=== PATIENT | male | born 1960 | race Caucasian/White ===

== ENCOUNTER → 2020-03-19 15:36 | Outpatient (BNVA) | payer MEDICARE, SELFPAY | PROVIDERS: Family Provider Family Medicine; PCP Family Medicine; Referring Provider Family Medicine; Visit Provider Specialist | DX: M17.12 Unilateral primary osteoarthritis, left knee (principal); M17.11 Unilateral primary osteoarthritis, right knee | CPT/HCPCS: 73560; 73565 ==

== ENCOUNTER → 2020-12-08 10:40 | Outpatient (BNVA) | payer MEDICARE, SELFPAY | PROVIDERS: Family Provider Family Medicine; PCP Family Medicine; Visit Provider Family Medicine | DX: Z12.5 Encounter for screening for malignant neoplasm of prostate (principal); Z13.6 Encounter for screening for cardiovascular disorders; R03.0 Elevated blood-pressure reading, without diagnosis of hypertension; Z68.28 Body mass index [BMI] 28.0-28.9, adult; Z71.89 Other specified counseling; M17.0 Bilateral primary osteoarthritis of knee | CPT/HCPCS: 80053; 80061; 85025; G0103 ==

== ENCOUNTER → 2021-10-25 08:03 | Outpatient (BNVA) | payer MEDICARE, MEDICAID, SELFPAY | PROVIDERS: Family Provider Family Medicine; PCP Family Medicine; Visit Provider Specialist | DX: M17.11 Unilateral primary osteoarthritis, right knee (principal) | CPT/HCPCS: 20610; J7318 ==

== ENCOUNTER → 2021-12-21 08:22 | Outpatient (BNVA) | payer MEDICARE, MEDICAID, SELFPAY | PROVIDERS: Family Provider Family Medicine; PCP Family Medicine; Visit Provider Family Medicine | DX: I10 Essential (primary) hypertension (principal); Z86.19 Personal history of other infectious and parasitic diseases | CPT/HCPCS: 85025 ==

== ENCOUNTER 2021-12-24 08:43 | Outpatient (CLI) | payer MEDICARE, MEDICAID, SELFPAY ==
[2021-12-24 09:50] LABS: Eosinophils # 0.2 10^3/uL (0.0-0.8); Hemoglobin 15.1 g/dL (11.7-16.6); Lymphocytes # 1.6 10^3/uL (0.8-4.8); Nucleated Red Blood Cells % 0 %; Red Cell Distribution Width 12.1 % (12.1-15.1); White Blood Count 4.4 10^3/uL (4.0-10.0)
[2021-12-24 10:00] LABS: Basophils % 0.9 %; Eosinophils % 4.8 %; Hematocrit 43.9 % (42.0-52.0); Lymphocytes % 36.2 %; Mean Corpuscular HGB Conc 34.4 g/dL (30.0-36.0); Mean Platelet Volume 10.5 fL (7.4-10.4); Monocytes # 0.6 10^3/uL (0.2-0.9); Monocytes % 14.2 %; Neutrophils # 1.92 10^3/uL (1.8-7.7); Neutrophils % 43.9 %; Platelet Count 163 10^3/cmm (130-400); Red Blood Count 4.72 10^6/uL (4.1-5.3)
[2021-12-24 10:11] LABS: Creatinine Urine, Random 203 mg/dL (39-259); Microalbum Creatinine Ratio Ur 5 mg/dL (0-20); Microalbumin Random Urine 1 ug/dL (0-20)
[2021-12-24 10:13] LABS: Alanine Aminotransferase 66 U/L (0-41); Albumin Level 4.2 g/dL (3.5-5.2); Alkaline Phosphatase 68 U/L (40-130); Anion Gap 15.9 (5-19); Aspartate Amino Transferase 50 U/L (0-40); Blood Urea Nitrogen 11 mg/dL (8-23); Calcium 9.5 mg/dL (8.5-10.5); Carbon Dioxide 26 mmol/L (22-29); Chloride 101 mmol/L (98-107); Globulin 3.3 g/dL (1.3-4.6); Glomerular Filtration Rate 86.1 mL/min (90-130); Glucose 105 mg/dL (65-115); Osmolality Calculated 288 mOsm/kg (285-295); Potassium 3.9 mmol/L (3.5-5.1); Sodium 139 mmol/L (136-145); Total Bilirubin 0.9 mg/dL (0.15-1.2); Total Protein 7.5 g/dL (6.6-8.7)
[2021-12-27 00:13] LABS: HEP C RNA Viral Load Quant <1.18 NOT DETECTED Log IU/mL (NOT DETECTED); HEP C RNA Viral Load Quant <15 NOT DETECTED IU/mL (NOT DETECTED)
== END 2021-12-24 08:44 | disposition home or self-care (01) ==
PROVIDERS: PCP Family Medicine; Visit Provider Family Medicine
DX: I10 Essential (primary) hypertension (principal); Z79.899 Other long term (current) drug therapy; Z12.5 Encounter for screening for malignant neoplasm of prostate; Z86.19 Personal history of other infectious and parasitic diseases; M54.50 Low back pain, unspecified
CPT/HCPCS: 36415; 80053; 82044; 84153; 85025; 87522

== ENCOUNTER 2022-02-28 06:47 | Outpatient (CLI) | payer MEDICARE, SELFPAY ==
--- NOTE | 2022-02-28 07:00 | US_ITS ---
WS: [id number] RIGHT UPPER QUADRANT ULTRASOUND HISTORY: elevated LFT COMPARISON: CT 05/14/2018 and prior ultrasound 04/09/2018 Liver: 15.5 cm in length. Normal size liver. Very minimal nodularity along the liver surface. Coarse echotexture throughout the liver. No mass or bile duct dilatation. Portal Vein: Normal hepatopetal flow with monophasic waveform. Gallbladder: Normally distended gallbladder with no stones or wall thickening. CBD: 0.4 cm Pancreas: Poorly visualized due to body habitus and bowel gas. Right kidney: 10.7 cm in length. Normal size and echogenicity. No hydronephrosis or mass. Aorta and IVC: Unremarkable abdominal aorta and IVC. No ascites. US/US liver [id number] IMPRESSION: 1. Negative gallbladder. 2. Mild coarse echotexture throughout the liver and surface nodularity. Most c onsistent with mild cirrhotic change.
== END 2022-02-28 06:48 | disposition home or self-care (01) ==
LOC: RAD 06:49
PROVIDERS: PCP Family Medicine; Visit Provider Family Medicine
DX: R79.89 Other specified abnormal findings of blood chemistry (principal); Z86.19 Personal history of other infectious and parasitic diseases
CPT/HCPCS: 76705

== ENCOUNTER 2022-06-27 14:31 | Outpatient (CLI) | payer MEDICARE, MEDICAID, SELFPAY ==
--- NOTE | 2022-06-27 14:30 | USCV_ITS ---
Dustin Allen Age: 62 Gender: M : 1960 Exam Date: 06/27/2022 14:56 Ordering Phys: Patricia Corea Technologist: CT Exam Location: [facility] [place]_ Indication: pain,swelling PROCEDURES: Venous duplex imaging was performed in only the right lower extremity. In addition, the posterior tibial and peroneal trunk were evaluated. On the right side, the common femoral, superficial femoral, profunda femoral, popliteal, posterior tibial, greater saphenous veins and the peroneal trunk were identified and interrogated in the standard fashion. These veins were found to be easily compressible with spontaneous blood flow. No evidence of insufficiency or thrombus noted. CONCLUSIONS No evidence of right lower extremity DVT. Enlarged lymph nodes left groin measuring 2-3cm with preserved fatty hilum, non specific but likely reactive. Recommend clinical correlation Roberto Carlos Esparza MD (Electronically Signed) Final Date: 28 June 2022 14:30 S
== END 2022-06-27 14:32 | disposition home or self-care (01) ==
LOC: RAD 14:35
PROVIDERS: PCP Family Medicine; Visit Provider Registered Nurse Neonatal Intensive Care
DX: M79.89 Other specified soft tissue disorders (principal)
CPT/HCPCS: 93971

== ENCOUNTER → 2022-10-20 08:08 | Outpatient (BNVA) | payer MEDICARE, MEDICAID, SELFPAY | PROVIDERS: PCP Family Medicine; Visit Provider Specialist | DX: M17.0 Bilateral primary osteoarthritis of knee (principal) | CPT/HCPCS: 20610; J7318 ==

== ENCOUNTER → 2022-11-08 09:00 | Outpatient (BNVA) | payer MEDICARE, MEDICAID, SELFPAY | PROVIDERS: PCP Family Medicine; Visit Provider Specialist | DX: G56.03 Carpal tunnel syndrome, bilateral upper limbs | CPT/HCPCS: 73110 ==

== ENCOUNTER → 2022-11-28 08:03 | Outpatient (BNVA) | payer MEDICARE, MEDICAID, SELFPAY | PROVIDERS: PCP Family Medicine; Visit Provider Specialist | DX: G56.03 Carpal tunnel syndrome, bilateral upper limbs | CPT/HCPCS: 99214 ==

== ENCOUNTER 2023-02-01 14:43 | Emergency (ER) | payer MEDICARE, SELFPAY ==
[2023-02-01 14:50] VITALS: BP 150/88; PULSE 111; RESP 16; TEMP 37.2; O2SAT 95; BMI 25.3
--- NOTE | 2023-02-01 15:22 | USR_ITS ---
PROCEDURE INFORMATION: Exam: US Duplex Right Lower Extremity Veins, Limited Exam date and time: 02/01/2023 3:43 PM Age: 62 years old Clinical indication: Pain; Leg, lower; Left; Additional info: Swelling, pain, warmth; R/O dvt TECHNIQUE: Imaging protocol: Real-time duplex ultrasound of the right extremity with 2-D garcia scale, color Doppler flow and spectral waveform analysis including responses to compression and other maneuvers (when performed) with image documentation. Limited exam was focused on the right lower extremity veins. COMPARISON: CR XR knees AP WB w BI lmt ORTH 03/19/2020 3:42 PM FINDINGS: Right deep veins: Unremarkable. The common femoral, femoral, proximal profunda femoral and popliteal veins are patent without thrombus. Normal Doppler waveforms. Normal compressibility and/or augmentation response. Superficial veins: Unremarkable. Saphenofemoral junction is patent without thrombus. Soft tissues: Unremarkable. US/[place] [id number] IMPRESSION: No evidence of deep vein thrombosis.
--- NOTE | 2023-02-01 15:24 | ED_ITS ---
HPI - Skin/Abscess/Foreign Bdy General: Chief complaint: Skin/Abscess/Foreign Body Stated complaint: right leg issue Time Seen by Provider: 02/01/23 15:03 History of Present Illness: 62-year-old male presents emergency room complaining of starting to feel fatigue 3 days ago. Yesterday he started developing redness and warmth of his right lower extremity. He noticed it a little bit on top of his foot but mostly around the ankle and calf of his right leg. Today he had a fever of up to 103 degrees at home. He has been taking Tylenol and ibuprofen. The redness is starting to streak up the inside of his right thigh. He denies feeling dizzy. He denies immunocompromise. He has had several knee operations on the right side which may predispose him to some vascular issues. He does not have peripheral arterial disease. Denies diabetes. Denies any wounds or rashes that preceded his symptoms on Monday or Monday. However, back in September, several months ago, he had cellulitis of the right lower extremity that felt very similar. Associated symptoms: Deny nausea or vomiting Review of Systems General: Reports: 10 or more systems reviewed and unremarkable except in HPI and below Eyes: Denies: change in vision ENMT: Denies: throat pain Card: Denies: chest pain, edema or syncope Resp: Denies: dyspnea or productive cough GI: Denies: abdominal pain, nausea, vomiting or diarrhea : Denies: flank pain, dysuria or urinary frequency Musc: Denies: neck pain or back pain Skin/Breast: Denies: erythema Neuro: Denies: headache(s), numbness in extremities, weakness in extremities, lack of coordination or difficulty walking [facility] ED PFSH: Medical History Enrolled in chronic care management History of hepatitis C Primary osteoarthritis of knees, bilateral Surgical History H/O knee surgery Family History Other Cancer Social History Smoking and tobacco/nicotine status: never used tobacco/nicotine Alcohol intake: current Alcohol intake frequency: few times a week Substance/Drug Use: former Physical Exam Narrative: EXAM NARRATIVE: Right lower extremity examination is abnormal. His foot has some very mild erythema around the dorsal midfoot. However most of the erythema starts just above the right ankle. It is warm to the touch. The ankle and calf are both edematous with increased compartment pressures. There appears to be some dilated varicose veins although there is subtle. There is streaking of erythema and warmth going up the medial right thigh. It stops around the right inguinal ligament. He is neurovascularly and motor intact both lower extremities. Examination of the foot does not reveal any obvious skin defects or wounds but he does have dry cracked skin. Const: COMMON NORMALS: no limitations, alert and well nourished EXAM LIMITATIONS: no altered mental status HENMT: COMMON NORMALS: normocephalic, atraumatic and external ears normal HEAD & SCALP: normocephalic and atraumatic EXTERNAL EAR: Yes external ears normal MOUTH: no muffled voice Eye: COMMON NORMALS: EOMs intact bilaterally, conjunctivae normal and no scle ral icterus CONJUNCTIVA: Yes conjunctivae normal Neck/C-Spine: COMMON NORMALS: no JVD GENERAL: Yes normal visual inspection and Yes trachea midline Cardio: COMMON NORMALS: no JVD RATE: tachycardic Neuro: COMMON NORMALS: moves all extremities, no focal motor deficits and no sensory deficits noted SENSORIUM/ORIENTATION: Yes alert SPEECH: speech normal Psych: COMMON NORMALS: mental status grossly normal, Normal thought process present, cooperative, normal affect and speech normal SPEECH: Yes normal speech THOUGHT PROCESS: Normal thought process present Skin: COMMON NORMALS: turgor normal and no jaundice GENERAL SKIN EXAM: turgor normal Course Vital Signs: Vital signs: Vital Signs Temperature 99.0 F 02/01/23 14:50 Pulse Rate 111 H 02/01/23 14:50 Respiratory Rate 16 02/01/23 14:50 Blood Pressure 150/88 02/01/23 14:50 Pulse Oximetry 95 02/01/23 14:50 Oxygen Delivery Me thod Room Air 02/01/23 14:50 MDM - Skin/Abscess/Foreign Bdy Medicial Decision Making Patient presents with what is likely cellulitis of the right lower extremity. He does have scars on his right knee and has had surgery on it twice. I am wondering if this is predisposing him to injury due to venous damage and probably some chronic venous hypertension and pooling. Patient reports that he did just get back from [place] where he was on vacation and drink alcohol ramon quently for 10 days. Unsure if this suppressed his immune system. He does not have any DVT risk factors other than he did fly in an airplane. However, he almost never sit still including when he is sitting down. He is constantly tapping his foot or moving around. He is not having any chest pain or shortness of breath. I will obtain a right lower extremity ultrasound to rule out DVT. However, most likely diagnosis is cellulitis. Patient will get blood cultures, lactic, IV fluids given his tachycardia and reported fever. He is not hypotensive and I think it is unlikely that he is septic. I will give him 2 g of IV Rocephin for his documented infection. Dispo pending labs and response to therapy. WBC normal Lactic normal Transaminitis and low sodium--> patient say h UPDATE: 1721 US results not back. I tracked down US team. THe US was taken 2 hrs ago but they don't see a pending report. I did not get verbal handoff on results. US tech on duty now is going to track down why there is a delay. Update: US images sent to radiologist at [facility]. Pt reassessed and redness/warmth hasn't changed. He has pretty significant cellulitis. He's gotten 2g of rocephin here. I'll put him on 500mg cephalexin qid for 10 days and ask to elevate, compression stockings, image the cellulitis daily to track progress. 1750: US RLE neg for DVT. Lab Data 02/01/23 15:41 02/01/23 15:41 Radiology Impressions Venous Duplex 02/01/23 15:22 IMPRESSION: No evidence of deep vein thrombosis. Laboratory Results WBC 6.98 10^3/uL (3.29-11.43) 02/01/23 15:41 RBC 4.49 10^6/uL (3.85-5.65) 02/01/23 15:41 Hgb 14.40 g/dL (11.27-16.99) 02/01/23 15:41 Hct 41.3 % (37-53) 02/01/23 15:41 MCV 92.0 fl (82-101) 02/01/23 15:41 MCH 32.1 pg (27-33) 02/01/23 15:41 MCHC 34.9 g/dL (30-55) 02/01/23 15:41 RDW 13.1 % (12.1-15.1) 02/01/23 15:41 Plt Count 95 10^3/cmm (157-399) L 02/01/23 15:41 MPV 10.3 fL (7.4-10.4) 02/01/23 15:41 Neut % (Auto) 83.0 % 02/01/23 15:41 Lymph % (Auto) 4.6 % 02/01/23 15:41 Charlton % (Auto) 11.9 % 02/01/23 15:41 Eos % (Auto) 0.0 % 02/01/23 15:41 Baso % (Auto) 0.1 % 02/01/23 15:41 Neut # (Auto) 5.79 10^3/uL (1.8-7.7) 02/01/23 15:41 Lymph # (Auto) 0.3 10^3/uL (0.8-4.8) L 02/01/23 15:41 Charlton # (Auto) 0.8 10^3/uL (0.2-0.9) 02/01/23 15:41 Eos # (Auto) 0.0 10^3/uL (0.0-0.8) 02/01/23 15:41 Baso # (Auto) 0.0 10^3/uL (0.0-0.1) 02/01/23 15:41 Nucleated RBC % (auto) 0 % 02/01/23 15:41 Nucleated RBCs # 0.0 /100WBC 02/01/23 15:41 Sodium 128 mmol/L (136-145) L 02/01/23 15:41 Potassium 3.7 mmol/L (3.5-5.1) 02/01/23 15:41 Chloride 94 mmol/L (98-107) L 02/01/23 15:41 Carbon Dioxide 19 mmol/L (22-29) L 02/01/23 15:41 Anion Gap 18.7 (5-19) 02/01/23 15:41 BUN 8 mg/dL (8-23) 02/01/23 15:41 Creatinine 0.7 mg/dL (0.7-1.2) 02/01/23 15:41 GFR Calculation 114.6 mL/min (90-130) 02/01/23 15:41 Glucose 138 mg/dL (65-115) H 02/01/23 15:41 Calculated Osmolality 267 mOsm/kg (285-295) L 02/01/23 15:41 Lactic Acid 1.7 mmol/L (0.5-2.2) 02/01/23 15:41 Calcium 8.9 mg/dL (8.5-10.5) 02/01/23 15:41 Total Bilirubin 1.5 mg/dL (0.15-1.2) H 02/01/23 15:41 AST 87 U/L (0-40) H 02/01/23 15:41 ALT 77 U/L (0-41) H 02/01/23 15:41 Alkaline Phosphatase 91 U/L (40-130) 02/01/23 15:41 Total Protein 7.3 g/dL (6.6-8.7) 02/01/23 15:41 Albumin 4.0 g/dL (3.5-5.2) 02/01/23 15:41 Globulin 3.3 g/dL (1.3-4.6) 02/01/23 15:41 All radiology interpretation(s) finalized by discharge Discharge Plan Discharge Patient Disposition: Home Clinical Impression: Cellulitis of right lower extremity, Transaminitis Condition: Stable Prescriptions: New cephalexin 500 mg capsule 500 mg PO Q6H 10 Days Qty: 40 0RF Held naproxen 250 mg Tablet 500 mg PO DAILY PRN (Reason: Pain) Hold Instructions: Resume on 02/01/23. Do not take ibuprofen and naproxen at same time--they are in same drug class No Action ibuprofen 200 mg Tablet 400 mg PO Q6H PRN (Reason: Pain) losartan 50 mg tablet 50 mg PO DAILY celecoxib 200 mg capsule 200 mg PO DAILY Discharge Orders: Discharge ED (Routine); Ordered 02/01/23 Ordered By: Dominic Reyes Referrals: Molly Fry DO [Primary Care Provider] - 4-7 days (Elevated liver enzymes (AST/ALT), cellulitis) Discharge Diet: Advance as tolerated Discharge Activity: Increase activity as tolerated Patient Instructions: Cellulitis (ED), Pain Management Activity Restrictions/Additional Instructions: Take antibiotics as prescribed. Take probiotics for the next one month to help offset killing of good gut bacteria. Elevated your right leg above level of heart for at least 6 hours per day. Wear a mild compression stocking on the right leg. Return to ER or call your doctor if you are getting worse. Coding Level of Care Code ED Skein Bander for Miguel Angel Lopez
[2023-02-01] MEDS: cefTRIAXone 2,000 MG in sodium chloride 0.9% (plus) 50 ML 100 MG IV (15:46)
[2023-02-01 16:02] LABS: Basophils % 0.1 %; Hematocrit 41.3 % (37-53); Lymphocytes # 0.3 10^3/uL (0.8-4.8); Lymphocytes % 4.6 %; Mean Corpuscular HGB Conc 34.9 g/dL (30-55); Mean Corpuscular Hemoglobin 32.1 pg (27-33); Mean Platelet Volume 10.3 fL (7.4-10.4); Monocytes # 0.8 10^3/uL (0.2-0.9); Monocytes % 11.9 %; Neutrophils # 5.79 10^3/uL (1.8-7.7); Nucleated Red Blood Cells % 0 %; Platelet Count 95 10^3/cmm (157-399); Red Blood Count 4.49 10^6/uL (3.85-5.65); Red Cell Distribution Width 13.1 % (12.1-15.1); White Blood Count 6.98 10^3/uL (3.29-11.43)
[2023-02-01 16:11] LABS: Alanine Aminotransferase 77 U/L (0-41); Alkaline Phosphatase 91 U/L (40-130); Anion Gap 18.7 (5-19); Aspartate Amino Transferase 87 U/L (0-40); Blood Urea Nitrogen 8 mg/dL (8-23); Calcium 8.9 mg/dL (8.5-10.5); Carbon Dioxide 19 mmol/L (22-29); Chloride 94 mmol/L (98-107); Globulin 3.3 g/dL (1.3-4.6); Glomerular Filtration Rate 114.6 mL/min (90-130); Glucose 138 mg/dL (65-115); Osmolality Calculated 267 mOsm/kg (285-295); Potassium 3.7 mmol/L (3.5-5.1); Sodium 128 mmol/L (136-145); Total Bilirubin 1.5 mg/dL (0.15-1.2); Total Protein 7.3 g/dL (6.6-8.7)
[2023-02-01 16:12] LABS: Lactic Sepsis W/Reflex 1.7 mmol/L (0.5-2.2)
[2023-02-01 16:38] LABS: Slide Review Slide Review Perform
== END 2023-02-01 18:04 | disposition home or self-care (01) ==
PROVIDERS: Emergency Provider Emergency Medicine; PCP Family Medicine
DX: L03.115 Cellulitis of right lower limb (principal); M79.604 Pain in right leg; R74.01 Elevation of levels of liver transaminase levels; Z86.19 Personal history of other infectious and parasitic diseases
CPT/HCPCS: 36415; 80053; 83605; 85025; 87040; 93971; 96365; 99284; J0696; J7030

== ENCOUNTER → 2023-02-08 14:03 | Outpatient (BNVA) | payer MEDICARE, SELFPAY | PROVIDERS: PCP Family Medicine; Visit Provider Nurse Practitioner | DX: G56.03 Carpal tunnel syndrome, bilateral upper limbs (principal) | CPT/HCPCS: 99213 ==

== ENCOUNTER → 2023-02-17 12:59 | Outpatient (BNVA) | payer MEDICARE, SELFPAY | PROVIDERS: PCP Family Medicine; Visit Provider Specialist | DX: G56.03 Carpal tunnel syndrome, bilateral upper limbs (principal) | CPT/HCPCS: 95910; 95911 ==

== ENCOUNTER → 2023-02-21 12:45 | Outpatient (BNVA) | payer MEDICARE, SELFPAY | PROVIDERS: PCP Family Medicine; Visit Provider Specialist | DX: G56.03 Carpal tunnel syndrome, bilateral upper limbs (principal) | CPT/HCPCS: 95870; 99202 ==

== ENCOUNTER → 2023-02-24 08:01 | Outpatient (BNVA) | payer MEDICARE, SELFPAY | PROVIDERS: PCP Family Medicine; Visit Provider Nurse Practitioner | DX: G56.03 Carpal tunnel syndrome, bilateral upper limbs (principal) | CPT/HCPCS: 99214 ==

== ENCOUNTER 2023-02-28 09:45 | Outpatient (CLI) | payer MEDICARE, SELFPAY ==
[2023-02-28 10:26] LABS: Basophils # 0.1 10^3/uL (0.0-0.1); Basophils % 1.6 %; Eosinophils # 0.2 10^3/uL (0.0-0.8); Hematocrit 41.7 % (37-53); Lymphocytes # 1.4 10^3/uL (0.8-4.8); Lymphocytes % 31.5 %; Mean Corpuscular HGB Conc 34.8 g/dL (30-55); Mean Corpuscular Hemoglobin 32.1 pg (27-33); Mean Corpuscular Volume 92.3 fl (82-101); Mean Platelet Volume 9.5 fL (7.4-10.4); Monocytes # 0.7 10^3/uL (0.2-0.9); Monocytes % 16.6 %; Neutrophils # 1.99 10^3/uL (1.8-7.7); Neutrophils % 46.3 %; Nucleated Red Blood Cells % 0 %; Platelet Count 144 10^3/cmm (157-399); Red Blood Count 4.52 10^6/uL (3.85-5.65); Red Cell Distribution Width 13.7 % (12.1-15.1); White Blood Count 4.29 10^3/uL (3.29-11.43)
[2023-02-28 10:48] LABS: Alanine Aminotransferase 46 U/L (0-41); Alkaline Phosphatase 103 U/L (40-130); Anion Gap 15.2 (5-19); Aspartate Amino Transferase 60 U/L (0-40); Blood Urea Nitrogen 9 mg/dL (8-23); Calcium 9.6 mg/dL (8.5-10.5); Carbon Dioxide 24 mmol/L (22-29); Chloride 103 mmol/L (98-107); Globulin 3.9 g/dL (1.3-4.6); Glomerular Filtration Rate 98.3 mL/min (90-130); Glucose 119 mg/dL (65-115); Osmolality Calculated 286 mOsm/kg (285-295); Potassium 4.2 mmol/L (3.5-5.1); Sodium 138 mmol/L (136-145); Total Bilirubin 0.7 mg/dL (0.15-1.2); Total Protein 7.9 g/dL (6.6-8.7)
== END 2023-02-28 09:46 | disposition home or self-care (01) ==
PROVIDERS: PCP Family Medicine; Visit Provider Nurse Practitioner
DX: G56.01 Carpal tunnel syndrome, right upper limb (principal)
CPT/HCPCS: 36415; 80053; 85025

== ENCOUNTER 2023-03-07 08:43 | Day surgery (SDC) | payer MEDICARE, SELFPAY ==
[2023-03-07] VITALS (10 sets, daily range): BP systolic 118–155; BP diastolic 76–90; PULSE 69–80; RESP 15–21; TEMP 36.3–36.6; O2SAT 92–97; BMI 25.3
[2023-03-07] MEDS: CELEcoxib 200 mg Capsule 400 MG (06:45)
[2023-03-07] MEDS: gabapentin 300 mg Capsule (06:45)
[2023-03-07] MEDS: sodium chloride 0.9% 1,000 ML 30 ML (06:45)
[2023-03-07] MEDS: ceFAZolin 2,000 mg SDV 2000 MG IVP (07:11)
[2023-03-07] MEDS: BUPivacaine 0.5% INJ 30 mL INJECTION (07:40)
--- NOTE | 2023-03-07 08:41 | P.OP_ITS ---
Operative Report Date of procedure: March 07, 2023 Pre-op diagnosis: Right carpal tunnel syndrome Post-op diagnosis: Right carpal tunnel release Post-op findings: Significant compression across the median nerve with fibrous tissue Procedure done: Right carpal tunnel release Specimens removed/disposition: None Surgeon: Yanet Lomeli MD Mechanical Engineering Lecturer: None Anesthesia: General (Per LMA, ASA 2) Estimated blood loss (mL): 1 Tourniquet time (min): 23 (At 250 mmHg) IV fluids (mL): 700 Urine output (mL): 0 (No Bradshaw) Complications: None Disposition: PACU (Then to same-day surgery for discharge to home) Brief History: This 62-year-old gentleman presents today for right carpal tunnel release. Initially, he was seen in the office for bilateral wrist pain and had findings consistent with bilateral carpal tunnel syndrome. He also had nerve conduction study and EMG demonstrating bilateral carpal tunnel. He has numbness and tingling in his hands and fingers which was equal bilaterally, but he felt that the worst one was the right. He also has wrist braces that he wears at night. Procedure: The patient was brought to the operating theater. The patient had general anesthesia per LMA, ASA 2. The tourniquet was elevated to 250 mmHg for a total tourniquet time of 23 minutes. The patient was also given Ancef 2 g preoperatively. The arm was then prepped and draped with DuraPrep in usual fashion with the arm draped free. A surgical pause was performed. At the time, the surgical pause, we confirmed the site and side of surgery. We also confirmed the patient's identity, appropriate and timely administration of preoperative antibiotics and preoperative surgical markings. An incision was then made along the thenar crease. The incision crossed the wrist joint in a curvilinear fashion. Dissection continued through skin and soft tissues using a scalpel. The palmaris longus was identified along with the transverse carpal ligament. Each of these was released carefully to avoid injury to the median nerve. We were able to dissect gently into the carpal canal which was noted to be quite tight with significant compression across the median nerve. The nerve was visualized and was an hourglass shape. The canal was subsequently palpated to assure there was no bony encroachment upon the canal. There was a quite thickened fibrous tissue within the canal, and this was opened longitudinally as well. The canal was then palpated distally and proximally to assure that my small finger was passed easily without impingement. Finding this to be so, attention was directed to closure. The wound was irrigated with ropivacaine plain. It was then closed with 3-0 nylon in an interrupted mattress fashion. Sterile dressing was then placed consisting of Dermabond, OpSite, fluffed fluffs, sterile soft roll, and an Trey wrap. The tourniquet was released after 23 minutes. There were no complications. There were no specimens. The procedure was well tolerated. Plan is the patient will be discharged home. Related Problem List Diagnoses (1) Carpal tunnel syndrome of right wrist:
--- NOTE | 2023-03-07 09:20 | ANE.PACU2 ---
Inpatient post-anesthesia follow up: Airway intact: Yes Vital signs: Temperature 97.5 F Pulse Rate 70 Respiratory Rate 18 Blood Pressure 148/83 Pulse Oximetry 95 Oxygen Delivery Me thod Room Air Oxygen Flow Rate Fraction of Inspir ed Oxygen Hydration adequate: Yes Nausea and vomiting: No Pain level: 1 Mental status: Baseline
== END 2023-03-07 09:26 | disposition home or self-care (01) ==
LOC: OR 08:44
PROVIDERS: PCP Family Medicine; Visit Provider Specialist
PROC: (CPT 64721; principal; 2023-03-07 07:00)
DX: G56.01 Carpal tunnel syndrome, right upper limb (principal)
CPT/HCPCS: 64721; J0690; J1100; J2405; J2704; J3010; J3490; J7030

== ENCOUNTER → 2023-03-23 07:41 | Outpatient (BNVA) | payer MEDICARE, SELFPAY | PROVIDERS: PCP Family Medicine; Visit Provider Nurse Practitioner | DX: G56.02 Carpal tunnel syndrome, left upper limb (principal); Z98.890 Other specified postprocedural states | CPT/HCPCS: 99214 ==

== ENCOUNTER 2023-04-18 08:42 | Day surgery (SDC) | payer MEDICARE, SELFPAY ==
[2023-04-18] VITALS (10 sets, daily range): BP systolic 124–155; BP diastolic 74–96; PULSE 75–88; RESP 12–20; TEMP 36.1–36.7; O2SAT 92–98; BMI 25.3
--- NOTE | 2023-04-18 09:17 | P.ANESASSM_ITS ---
Pre-Anesthetic Assessment Height/Weight: Height 1.7 m Weight 73.482 kg Temp Pulse Resp BP Pulse Ox O2 Del Method 97.5 F L 75 17 144/85 95 Room Air 04/18/23 08:59 04/18/23 08:59 04/18/23 08:59 04/18/23 08:59 04/18/23 08:59 04/18/23 08:59 Operation Date: 04/18/23 10:25 Proposed Procedures p Carpal Tunnel Release(Left) - Yanet Lomeli MD Was Beta Argenis taken within 24 hours: N/A Was Clonidine taken within 24 hours: N/A Last intake: Intake Last Liquid Date 04/17/23 Last Liquid Time 22:00 Last Solid Date 04/17/23 Last Solid Time 22:00 Social No tobacco Exam alert and oriented x 3 Airway Submandibular: within normal limits Cervical ROM: within normal limits Mallampati: Class I Comments: Comments: No upper teeth History/ROS No significant history except as noted and No significant complaints Musc/skel Osteoarthritis/DJD Anesthetic Plan ASA status: 2 Anesthesia: General Risk of > 500 ml blood loss (7ml/kg in children): No Medications/Allergies Home Medications Medication Instructions Recorded Confirmed Last Taken Type celecoxib 200 mg capsule 200 mg PO DAILY 02/01/23 04/17/23 04/17/23 History naproxen 250 mg tablet 500 mg PO DAILY PRN Pain 02/01/23 04/17/23 04/17/23 History Bilateral Cock-Up Splints #1 ea 02/08/23 04/18/23 Unknown Rx cock up wrist splint, left #1 ea 03/14/23 04/18/23 Unknown Rx cock up wrist splint, right #1 ea 03/14/23 04/18/23 Unknown Rx Allergies Allergy/AdvReac Type Severity Reaction Status Date / Time No Known Allergies Allergy Verified 03/23/23 08:06 [facility] Anesthesia Medical History Carpal tunnel syndrome of left wrist Carpal tunnel syndrome of right wrist Primary osteoarthritis of knees, bilateral History of hepatitis C Enrolled in chronic care management Surgical History (Updated 03/23/23 @ 08:59 by LYNDON Gtz) History of carpal tunnel release Right wrist carpal tunnel release. Dr. Yanet Lomeli MD DOS: 03/07/2023 H/O knee surgery Family History Other Cancer Social History Smoking and tobacco/nicotine status: never used tobacco/nicotine Alcohol intake: current Alcohol intake frequency: few times a week Substance/Drug Use: former Data Anesthesia Cardiac Studies: No Data to Display
[2023-04-18] MEDS: acetaminophen 1,000 MG/100 ML PIGGYBACK 400 MG IV (09:23)
[2023-04-18] MEDS: CELEcoxib 200 mg Capsule 400 MG PO (09:24)
[2023-04-18] MEDS: gabapentin 300 mg Capsule PO (09:25)
[2023-04-18] MEDS: sodium chloride 0.9% 1,000 ML 30 ML IV (09:29)
[2023-04-18] MEDS: ceFAZolin 2,000 MG in sodium chloride 0.9% (plus) 50 ML 100 MG IV (11:42)
--- NOTE | 2023-04-18 11:42 | W.PM.OPSUD ---
Surgery/Procedure H&P Update DATE OF PROCEDURE: April 18, 2023 DATE H&P PERFORMED: 03/23/23 H&P UPDATE INFORMATION: I have reviewed H&P completed within last 30 days, I have examined patient prior to procedure, No changes to prior documentation and H&P is in [facility] EMR on date indicated PLANNED PROCEDURE: Operation Date: 04/18/23 10:25 Proposed Procedures p Carpal Tunnel Release(Left) - Yanet Lomeli MD Related Problem List Diagnoses (1) Carpal tunnel syndrome of left wrist:
[2023-04-18] MEDS: BUPivacaine 0.5% INJ 30 mL INJECTION (12:35)
--- NOTE | 2023-04-18 12:53 | PM.OP ---
Operative Report Date of procedure: April 18, 2023 Pre-op diagnosis: Left carpal tunnel syndrome Post-op diagnosis: Left carpal tunnel syndrome Post-op findings: Severe compression across the carpal canal. Significant purplish discoloration and hourglass deformity to the median nerve. Bleeding at the time of surgery likely secondary to continued anti-inflammatory use. Procedure done: Left carpal tunnel release. Specimens removed/disposition: None Surgeon: Yanet Lomeli MD Senior Analysis Specialist: None Anesthesia: General (Per LMA, ASA 2) Estimated blood loss (mL): 20 Tourniquet time (min): 25 (At 250 mmHg) Tourniquet was elevated for 5 minutes initially, but there was a tourniquet malfunction and it was released secondary to not remaining elevated. IV fluids (mL): 1,100 Urine output (mL): 0 (No Bradshaw) Complications: None Findings: Consistent with carpal tunnel syndrome Brief History: This 63-year-old gentleman presents today for left carpal tunnel release. Initially, he was seen in the office for bilateral wrist pain and had findings consistent with bilateral carpal tunnel syndrome. He underwent right carpal tunnel release in February 2023, and he has recovered nicely from this. He also had nerve conduction study and EMG demonstrating bilateral carpal tunnel. He presented with numbness and tingling in his hands and fingers which was equal bilaterally, but the right was addressed first as he felt that was slightly worse. He also has wrist braces that he wears at night. As noted, the patient has recovered nicely from his right carpal tunnel release and presents today for left carpal tunnel release. Procedure: The patient was brought to the operating theater. The patient had general anesthesia per LMA, ASA 2. The tourniquet was elevated to 250 mmHg for a total tourniquet time of 25 minutes with an initial elevation and release of approximately 5 minutes due to tourniquet not remaining elevated. The patient was also given Ancef 2 g preoperatively. The arm was then prepped and draped with DuraPrep in usual fashion with the arm draped free. A surgical pause was performed. At the time, the surgical pause, we confirmed the site and side of surgery. We also confirmed the patient's identity, appropriate and timely administration of preoperative antibiotics and preoperative surgical markings. An incision was then made along the thenar crease. The incision crossed the wrist joint in a curvilinear fashion. Dissection continued through skin and soft tissues using a scalpel. The palmaris longus was identified along with the transverse carpal ligament. There was noted to be bleeding at the operative site from the subcutaneous tissues. This was felt to likely be from naproxen use along with Celebrex. The palmaris longus and transverse carpal ligament were released carefully to avoid injury to the median nerve. We were able to dissect gently into the carpal canal which was noted to be quite tight with significant compression across the median nerve. The nerve was visualized and was an hourglass shape. The canal was subsequently palpated to assure there was no bony encroachment upon the canal. There was a quite thickened fibrous tissue within the canal, and this was opened longitudinally as well. The canal was then palpated distally and proximally to assure that my small finger was passed easily without impingement. Finding this to be so, attention was directed to closure. The wound was irrigated with ropivacaine plain. It was then closed with 3-0 nylon in an interrupted mattress fashion. Sterile dressing was then placed consisting of Dermabond, OpSite, fluffed fluffs, sterile soft roll, and an Trey wrap. The tourniquet was released after 22 minutes. There were no complications. There were no specimens. The procedure was well tolerated. Plan is the patient will be discharged home. Related Problem List Diagnoses (1) Carpal tunnel syndrome of left wrist:
--- NOTE | 2023-04-18 16:54 | ANE.PACU2 ---
Inpatient post-anesthesia follow up: Airway intact: Yes Vital signs: Temperature 98 F Pulse Rate 88 Respiratory Rate 17 Blood Pressure 154/90 Pulse Oximetry 97 Oxygen Delivery Me thod Room Air Oxygen Flow Rate 6 Fraction of Inspir ed Oxygen Hydration adequate: Yes Nausea and vomiting: No Pain level: 2 Mental status: Baseline
== END 2023-04-18 14:05 | disposition home or self-care (01) ==
PROVIDERS: PCP Family Medicine; Visit Provider Specialist
PROC: (CPT 64721; principal; 2023-04-18 10:25)
DX: G56.02 Carpal tunnel syndrome, left upper limb (principal); M19.90 Unspecified osteoarthritis, unspecified site; Z86.19 Personal history of other infectious and parasitic diseases
CPT/HCPCS: 64721; J0131; J0690; J1100; J2405; J2704; J3010; J3490; J7030

== ENCOUNTER → 2023-05-03 09:38 | Outpatient (BNVA) | payer MEDICARE, SELFPAY | PROVIDERS: PCP Family Medicine; Visit Provider Specialist | DX: G56.02 Carpal tunnel syndrome, left upper limb (principal) | CPT/HCPCS: 99024 ==

== ENCOUNTER → 2023-05-22 09:04 | Outpatient (BNVA) | payer MEDICARE, SELFPAY | PROVIDERS: PCP Family Medicine; Visit Provider Family Medicine | DX: Z13.6 Encounter for screening for cardiovascular disorders (principal); Z12.5 Encounter for screening for malignant neoplasm of prostate | CPT/HCPCS: 80061; G0103 ==

== ENCOUNTER → 2023-05-29 08:03 | Outpatient (BNVA) | payer MEDICARE, SELFPAY | PROVIDERS: PCP Family Medicine; Referring Provider Family Medicine; Visit Provider Nurse Practitioner | DX: M17.0 Bilateral primary osteoarthritis of knee | CPT/HCPCS: 73560; 73565; 99214 ==

== ENCOUNTER 2023-05-30 08:50 | Outpatient (CLI) | payer MEDICARE, SELFPAY ==
[2023-05-30 09:25] LABS: Basophils # 0.1 10^3/uL (0.0-0.1); Basophils % 1.7 %; Eosinophils # 0.2 10^3/uL (0.0-0.8); Eosinophils % 6.1 %; Hematocrit 44.8 % (37-53); Lymphocytes # 1.3 10^3/uL (0.8-4.8); Lymphocytes % 35.9 %; Mean Corpuscular Hemoglobin 31.6 pg (27-33); Mean Corpuscular Volume 90.1 fl (82-101); Mean Platelet Volume 9.6 fL (7.4-10.4); Monocytes # 0.6 10^3/uL (0.2-0.9); Neutrophils # 1.46 10^3/uL (1.8-7.7); Neutrophils % 40.3 %; Nucleated Red Blood Cells % 0 %; Platelet Count 113 10^3/cmm (157-399); Red Blood Count 4.97 10^6/uL (3.85-5.65); Red Cell Distribution Width 12.7 % (12.1-15.1); White Blood Count 3.62 10^3/uL (3.29-11.43)
[2023-05-30 09:41] LABS: Alanine Aminotransferase 46 U/L (0-41); Albumin Level 4.1 g/dL (3.5-5.2); Alkaline Phosphatase 87 U/L (40-130); Anion Gap 14.3 (5-19); Aspartate Amino Transferase 59 U/L (0-40); Blood Urea Nitrogen 9 mg/dL (8-23); Calcium 9.1 mg/dL (8.5-10.5); Carbon Dioxide 25 mmol/L (22-29); Chloride 104 mmol/L (98-107); Globulin 3.1 g/dL (1.3-4.6); Glomerular Filtration Rate 85.5 mL/min (90-130); Glucose 93 mg/dL (65-115); Osmolality Calculated 286 mOsm/kg (285-295); Potassium 4.3 mmol/L (3.5-5.1); Sodium 139 mmol/L (136-145); Total Protein 7.2 g/dL (6.6-8.7)
[2023-05-30 11:21] LABS: Urine Appearance SL Hazy (CLEAR); Urine Color Yellow (Yellow); pH Urine 7 (5-7)
[2023-05-30 11:22] LABS: Add Urine Microscopic? YES; Bilirubin Urine Neg (Negative); Blood Urine Neg (Negative); Glucose Urine UA Norm (Normal); Ketones Urine Negative (Negative); Leukocyte Esterase Urine Negative (Negative); Nitrate Urine Negative (Negative); Protein Urine Neg (Negative); Urobilinogen Urine 4 mg/dL (Negative)
[2023-05-30 11:24] LABS: Amorphous Sediment Urine 1+ /hpf; Bacteria Urine TRACE /hpf; Mucus Urine TRACE /hpf; RBC Urine RARE /hpf (0-2); Squamous Epithelial Cell Urine RARE /hpf (0-5); WBC Urine 0-4 /hpf (0-5)
[2023-05-30 11:25] LABS: Add Urine Culture? No
== END 2023-05-30 08:51 | disposition home or self-care (01) ==
LOC: LAB 08:50
PROVIDERS: PCP Family Medicine; Visit Provider Specialist
DX: M17.12 Unilateral primary osteoarthritis, left knee (principal)
CPT/HCPCS: 36415; 80053; 81001; 85025

== ENCOUNTER 2023-05-30 11:00 | Outpatient (CLI) | payer MEDICARE, SELFPAY ==
--- NOTE | 2023-05-30 11:30 | CT_ITS ---
WS: [id number] CT LEFT KNEE, NONCONTRAST TECHNIQUE: Noncontrast CT of the LEFT knee to include the LEFT hip and ankle. [facility] CLINICAL INFORMATION: Surgery on 06/08/23 COMPARISON: None. DLP: [address] scans [address] [facility] use at least one of these dose optimization techniques: automated e xposure control; mA and/or kV adjustment per patient size (includes targeted exams where dose is matc hed to clinical indication); or iterative reconstruction. FINDINGS: Advanced tricompartment arthritis LEFT knee. Hypertrophic patella. Extensive subchondral cystic maxwell e worse involving the medial joint compartment and medial femoral condyle. [id number] articulation medial joint compartment. Hypertrophic change along the joint line. Prior screw fixation presumably d ue to ACL repair. Small suprapatellar effusion. Moderate degenerative narrowing both hips. Subchondral cystic change LE FT greater than RIGHT femoral head neck junction. Sigmoid diverticulosis. IMPRESSION: Images obtained for preoperative purposes.
== END 2023-05-30 11:01 | disposition home or self-care (01) ==
LOC: RAD 11:01
PROVIDERS: PCP Family Medicine; Visit Provider Nurse Practitioner
DX: M17.12 Unilateral primary osteoarthritis, left knee (principal)
CPT/HCPCS: 36415; 73700; 78815; 80053; 81001; 85025; A9552

== ENCOUNTER → 2023-06-06 14:35 | Outpatient (BNVA) | payer MEDICARE, SELFPAY | PROVIDERS: PCP Family Medicine; Visit Provider Family Medicine | DX: Z01.818 Encounter for other preprocedural examination (principal) | CPT/HCPCS: 81003 ==

== ENCOUNTER 2023-06-08 12:54 | Observation (INO) | payer MEDICARE, SELFPAY ==
[2023-06-08] VITALS (19 sets, daily range): BP systolic 93–137; BP diastolic 53–97; PULSE 78–98; RESP 10–18; TEMP 36.3–37.1; O2SAT 85–99; BMI 26.3
[2023-06-08] MEDS: acetaminophen 1,000 MG/100 ML PIGGYBACK 400 MG IV ×3 (06:57→21:25)
[2023-06-08] MEDS: sodium chloride 0.9% 1,000 ML 30 ML IV (06:58)
[2023-06-08] MEDS: CELEcoxib 200 mg Capsule 400 MG PO (06:59)
[2023-06-08] MEDS: gabapentin 300 mg Capsule PO (06:59)
--- NOTE | 2023-06-08 07:26 | W.PM.OPSUD ---
Surgery/Procedure H&P Update DATE OF PROCEDURE: June 08, 2023 DATE H&P PERFORMED: 05/29/23 H&P UPDATE INFORMATION: I have reviewed H&P completed within last 30 days, I have examined patient prior to procedure, No changes to prior documentation and H&P is in [facility] EMR on date indicated PLANNED PROCEDURE: Operation Date: 06/08/23 08:00 Proposed Procedures p Willy Robot Total Knee Arthroplasty(Left) - Yanet Lomeli MD Related Problem List Diagnoses (1) Osteoarthritis of left knee: Qualifiers: Osteoarthritis type: primary Qualified Code(s): M17.12 - Unilateral primary osteoarthritis, left knee
--- NOTE | 2023-06-08 07:33 | ANES.PREANE2 ---
Pre-Anesthetic Assessment Height/Weight: Height 1.7 m Weight 76.204 kg Temp Pulse Resp BP Pulse Ox O2 Del Method 98 F 88 18 101/65 96 Room Air 06/08/23 06:39 06/08/23 06:39 06/08/23 06:39 06/08/23 06:39 06/08/23 06:39 06/08/23 06:47 Operation Date: 06/08/23 08:00 Proposed Procedures p Willy Robot Total Knee Arthroplasty(Left) - Yanet Lomeli MD Familial anesthetic complications: none Was Beta Argenis taken within 24 hours: N/A Was Clonidine taken within 24 hours: N/A Last intake: Intake Last Liquid Date 06/08/23 Last Liquid Time 22:00 Last Solid Date 06/07/23 Last Solid Time 22:00 Social No alcohol and No tobacco Exam alert, oriented x 3, clear to auscultation bilaterally and regular rate & rhythm Airway Submandibular: within normal limits Cervical ROM: within normal limits Mallampati: Class II Dentition: full Hepatic Hepatitis (C) Musc/skel Lower Back Pain and Osteoarthritis/DJD Anesthetic Plan ASA status: 2 Anesthesia: Regional (specify below) (SAB with adductor blk) Medications/Allergies Home Medications Medication Instructions Recorded Confirmed Last Taken Type celecoxib 200 mg capsule 200 mg PO DAILY 06/07/23 06/08/23 06/06/23 History Allergies Allergy/AdvReac Type Severity Reaction Status Date / Time No Known Allergies Allergy Verified 06/07/23 09:27 Current Medications Generic Name Dose Route Start Last Admin Trade Name Freq PRN Reason Stop Dose Admin Sodium Chloride 1,000 mls @ 30 mls/hr 06/08/23 06:30 06/08/23 06:58 Sodium Chloride 0.9% IV 06/09/23 06:29 30 mls/hr .Q24H GOLDY Administration PFSH Anesthesia Medical History Carpal tunnel syndrome of left wrist Carpal tunnel syndrome of right wrist Primary osteoarthritis of knees, bilateral History of hepatitis C Enrolled in chronic care management Surgical History History of carpal tunnel release Right wrist carpal tunnel release. Dr. Yanet Lomeli MD DOS: 03/07/2023 H/O knee surgery Family History Other Cancer Social History Smoking and tobacco/nicotine status: never used tobacco/nicotine Alcohol intake: current Alcohol intake frequency: few times a week Substance/Drug Use: former Data Anesthesia Cardiac Studies: No Data to Display
[2023-06-08] MEDS: ceFAZolin 2,000 MG in sodium chloride 0.9% (plus) 50 ML 100 MG IV ×2 (08:33→18:14)
[2023-06-08] MEDS: tranexamic acid 1,000 mg/10mL SDV 1000 MG IV (09:24)
--- NOTE | 2023-06-08 09:31 | ANES.PROC ---
Anesthesia Procedures Procedure/Date: 06/08/23 Nerve Block ^: Nerve Block 1: Main Anesthesia: general anesthesia Time Out Performed: Yes Consent: requested by attending/covering physician, from patient, risks and benefits reviewed and patient agrees to proceed Nerve block location: adductor canal (left) Anesthesia monitors applied: pulse oximetry, EKG, BP cuff and oxygen Nerve block position: supine Anesthetic Used: ropivicaine 0.5% Amount of anesthesia used (mL): 20 Ultrasound used to: recognize landmarks Nerve Stimulator Used?: No Interscalene/Femoral BLK: 4 stimuplex 21 g needle used for position and inplane approach Injection: neg aspiration of heme Patient Tolerated Procedure: well Complications: none
[2023-06-08] MEDS: BUPivacaine liposome 13.3 mg/mL SDV 10 mL 266 MG INFILTRATI (09:54)
[2023-06-08] MEDS: BUPivacaine 0.5% INJ 30 mL 20 ML INJECTION (09:54)
[2023-06-08] MEDS: ceFAZolin 1,000 mg SDV 2000 MG IRRIGATION (09:55)
[2023-06-08] MEDS: vancomycin 1,000 MG SDV 1000 MG (09:56)
--- NOTE | 2023-06-08 13:29 | XR_ITS ---
WS: [id number] Exam: XR knee LT 1-2V [id number] Date/Time of Exam: 06/08/2023 1:29 PM Reason For Exam: s/p left tka Comparison 05/29/2023. A total knee prosthesis has been placed and is in satisfactory position. Postoperative changes in the adjacent soft tissues. A single screw is noted in the distal femur secondary to previous ACL repair. IMPRESSION: 1. Total knee arthroplasty in satisfactory position.
--- NOTE | 2023-06-08 13:57 | PM.OP ---
Operative Report Date of procedure: June 08, 2023 Pre-op diagnosis: Degenerative osteoarthritis left knee with 20 degree flexion contracture and 28 degree varus deformity with retained anterior cruciate ligament reconstruction hardware Post-op diagnosis: Degenerative osteoarthritis left knee with 20 degree flexion contracture and 28 degree varus deformity with retained anterior cruciate ligament reconstruction hardware Post-op findings: Retained hardware with prominence of tibial hardware anterior cortex. Large osteophytes with significant laxity laterally secondary to severe varus deformity. Procedure done: Left total knee arthroplasty with Willy guidance and removal of ACL screw from tibia Implants: The [employer] total knee system with a size 5 triathlon beaded cruciate retaining femur left, a triathlon titanium tibial component size 4 beaded, a triathlon X3 tibial bearing CS insert size 4 X 11 mm and a beaded triathlon titanium asymmetric patella size 35 x 10 mm Specimens removed/disposition: Bone, disposed of Pathology: None Surgeon: Yanet Lomeli MD Crowd Controller: Nidhi Rodríguez, nurse practitioner, who services were essential for positioning, retraction, closure, and completion of the surgical procedure Anesthesia: General (Per LMA, ASA 2 following failed attempt at spinal anesthesia) Estimated blood loss (mL): 750 Tourniquet time (min): 0 (Not utilized) IV fluids (mL): 2,050 IV fluids: 1800 crystalloid +250 albumin Urine output (mL): 400 Complications: None Findings: Severe varus deformity and flexion contracture with retained hardware Condition: stable Disposition: PACU (Then admit to floor under observation status for postoperative rehabilitation and pain management) Brief History: This is a 63-year-old gentleman who presents today for same-day surgery for left total knee arthroplasty. When seen in the clinic, he complains of pain at 5 of 10. He had had injections which only worked for a few months, and he had a directed home physical therapy program which also did not help his symptoms. He takes Celebrex daily with limited relief. He is actually interested in having both knees replaced, and noted that they were both essentially equal in symptoms. He has significant limitations in his activities of daily living. Risks and complications were discussed with the patient, and consents were signed. Procedure: The patient was brought to the operating theater, and after undergoing attempted spinal anesthetic converted to general anesthesia per LMA, with supplemental adductor canal block, ASA 2, the left lower extremity was prepped with Dura-Prep and draped in usual fashion following placement of a tourniquet high on the leg. The leg was then draped free.? Tourniquet was not elevated during the case.? A surgical pause was performed, and at the time of the surgical pause, we confirmed the site and side of surgery. Additionally, we confirmed the appropriate and timely administration of preoperative antibiotics, Ancef 2 g.? The availability of equipment was confirmed, and the patient's identity was verbalized as well. Following the surgical pause, an incision was made centering over the patella continuing proximally and distally as necessary to allow access to the knee joint. Dissection continued through skin and soft tissues using a scalpel. Hemostasis was obtained using electrocautery. The skin incision was followed by a median parapatellar arthrotomy. The leg was extended and the patella was able to be displaced laterally.? Appropriate arrays and markers were placed in appropriate position for use of the Willy.? Prior to mapping of the extremity, the patient's anterior cruciate ligament retained tibial screw was removed uneventfully. Preoperative planning had been accomplished and was discussed in detail with the Willy industrial relations representative.? Intraoperative mapping of the femur and tibia was accomplished after the arrays and checkpoints were placed. Once we had accomplished the Willy mapping, we began the appropriate resections for placement of the prosthesis.? The plan was for a cruciate retaining left total knee arthroplasty. Balancing the knee was very difficult secondary to the 20 degree flexion contracture and 28 degree varus deformity. The knee was very lax laterally. There was also some cystic change and wearing of the inner medial tibial plateau. Adjustments were made as appropriate. Once appropriate mapping had been accomplished retraction was established using manual retraction by surgical technicians and also the Willy leg positioner and retractors.? The knee was evaluated.? Appropriate bone resection was accomplished using the Willy.? The femur was sized to a size 5.? Following femoral cuts, attention was directed to the tibia.? Osteophytes were removed prior to this portion of the procedure.? We had performed a large medial release at the beginning of the procedure to allow for placement of the array and to assist in balancing the knee.? Proximal tibia was evaluated, and it was felt that appropriate size for the tibia was a size 4.? Tray was noted to fit nicely with good coverage, and we were able to avoid the deficient area on the medial tibial plateau.? Rim fit was accomplished with the size 4. A trial reduction was accomplished after osteophytes have been removed as well as the medial and lateral menisci.? We had removed the anterior cruciate ligament at the beginning of the case and preserved the posterior cruciate ligament.? Trial reduction was accomplished with a size 5 femoral cruciate retaining component, a size 4 tibial tray and a size 4 CS tibial bearing insert which was 9 mm initially which was increased to 11 mm.? Secondary to the balancing of the knee, we elected to place an 11 mm insert for the actual component. Alignment was felt to be appropriate as well.? Trial components were removed after the femur had been drilled.? Prior to removal of the tibial tray which had been pinned in position with appropriate rotation as determined by the Willy plan, we broached the tibia.? Subsequently, the 4 drill holes were made for the prosthetic component.? All trial components were removed, and the wound was irrigated.? Plans were made for insertion of the prosthetic components.? Prior to this, the patella was manually prepared.? After resection of the articular surface of the patella with the c1covry system, it was measured and measured a 35 mm patella.? We resected approximately 11 mm of patella.? Patellar height was restored with the patellar component. Evaluation of the femur demonstrated there was a cyst in the medial femoral condyle which was quite large. Additionally, following removal of the tibial screw which was residual from anterior cruciate ligament reconstruction, there was a path from the proximal tibia to the anterior tibia. Both of these areas, the cyst in the femur as well as the tibial tunnel were cleaned of all debris. We then placed Eli DBM plus putty with cancellous bone chips as bone graft into the area. Once again, the wound was irrigated.? The Tritanium tibia was impacted into position.? The beaded femur was then impacted into position in a cementless fashion. The CS tibial insert was placed prior to placement of the femoral component. The patella was pressed into position with a patellar clamp.? Exparel was injected about the components deep and superficially.? The knee was then copiously irrigated with betadine and saline and suctioned dry. Attention was then directed to closure. Closure was accomplished with 0 Vicryl in the fascial tissues.? The suture line of 0 Vicryl was supplemented with strata fix, #1, with a running stitch from proximal to distal and a second running stitch from distal to proximal.? This was followed by Surgiflo and vancomycin powder.? Following this, a 2-0 Monocryl was used in the subcutaneous tissues, and the skin was closed with 3-0 Strata fix.? Care was taken to assure an excellent subcutaneous as well as skin closure.? A sterile dressing was then placed consisting of Dermabond Prineo, OpSite, ABD, sterile soft roll, and an Trey wrap including over the foot. The patient was returned the Recovery Room in a satisfactory condition. X-rays were obtained and reviewed there.? The patient will be discharged to the floor for postoperative rehabilitation and pain management. Related Problem List Diagnoses (1) Osteoarthritis of left knee: (2) Retained orthopedic hardware: (3) Varus deformity, not elsewhere classified, left knee: (4) Flexion contracture of left knee:
--- NOTE | 2023-06-08 14:16 | ANE.PACU2 ---
Inpatient post-anesthesia follow up: Airway intact: Yes Vital signs: Temperature 98.8 F Pulse Rate 84 Respiratory Rate 18 Blood Pressure 119/80 Pulse Oximetry 98 Oxygen Delivery Me thod Nasal Cannula Oxygen Flow Rate 2 Fraction of Inspir ed Oxygen Hydration adequate: Yes Nausea and vomiting: No Pain level: 2 Mental status: Baseline
[2023-06-08] MEDS: CELEcoxib 200 mg Capsule PO (16:00)
[2023-06-08] MEDS: oxyCODONE 5 mg IR Tab/Cap PO ×2 (16:00→21:52)
[2023-06-08] MEDS: sennosides-docusate Tablet 2 TAB PO (18:14)
[2023-06-08] MEDS: iron polysaccharide complex 150 mg Capsule PO (18:15)
[2023-06-08] MEDS: tranexamic acid 1,000 MG/100 ML PREMIX 600 MG IV (18:16)
[2023-06-08] MEDS: chlorhexidine gluconate 0.12% Btl 473 mL 30 ML MUCOUS MEM (21:24)
[2023-06-09] VITALS (8 sets, daily range): BP systolic 117–145; BP diastolic 70–81; PULSE 78–92; RESP 16–18; TEMP 36.8–37.1; O2SAT 92–97
[2023-06-09] MEDS: ceFAZolin 2,000 MG in sodium chloride 0.9% (plus) 50 ML 100 MG IV ×2 (00:22→08:32)
[2023-06-09] MEDS: ondansetron 2 mg/ML SDV 2 mL 4 MG IVP (01:11)
[2023-06-09 03:32] LABS: Basophils % 0.1 %; Lymphocytes # 0.9 10^3/uL (0.8-4.8); Lymphocytes % 5.8 %; Mean Corpuscular HGB Conc 34.2 g/dL (30-55); Mean Corpuscular Hemoglobin 31.4 pg (27-33); Mean Corpuscular Volume 91.8 fl (82-101); Mean Platelet Volume 9.8 fL (7.4-10.4); Monocytes # 1.7 10^3/uL (0.2-0.9); Monocytes % 11.5 %; Neutrophils # 12.38 10^3/uL (1.8-7.7); Neutrophils % 82.2 %; Nucleated Red Blood Cells % 0 %; Platelet Count 145 10^3/cmm (157-399); Red Blood Count 3.92 10^6/uL (3.85-5.65); Red Cell Distribution Width 12.6 % (12.1-15.1); White Blood Count 15.07 10^3/uL (3.29-11.43)
[2023-06-09 03:52] LABS: Anion Gap 15.2 (5-19); Blood Urea Nitrogen 12 mg/dL (8-23); Calcium 8.5 mg/dL (8.5-10.5); Carbon Dioxide 23 mmol/L (22-29); Chloride 101 mmol/L (98-107); Creatinine Clr Calc Pharmacy 108.5525; Glomerular Filtration Rate 114.3 mL/min (90-130); Glucose 122 mg/dL (65-115); Osmolality Calculated 281 mOsm/kg (285-295); Potassium 4.2 mmol/L (3.5-5.1); Sodium 135 mmol/L (136-145)
[2023-06-09] MEDS: oxyCODONE 5 mg IR Tab/Cap PO ×3 (04:36→12:36)
[2023-06-09] MEDS: acetaminophen 1,000 MG/100 ML PIGGYBACK 400 MG IV (05:45)
[2023-06-09] MEDS: CELEcoxib 200 mg Capsule PO (05:45)
[2023-06-09] MEDS: iron polysaccharide complex 150 mg Capsule PO (08:30)
[2023-06-09] MEDS: aspirin 325 mg EC Tablet PO (08:30)
[2023-06-09] MEDS: sennosides-docusate Tablet 2 TAB PO (08:30)
[2023-06-09] MEDS: mupirocin oint 22 gm 1 APPLIC NASAL (09:41)
[2023-06-09] MEDS: chlorhexidine gluconate 0.12% Btl 473 mL 30 ML MUCOUS MEM ×2 (09:41→12:36)
--- NOTE | 2023-06-09 09:58 | PC.CHAP ---
Pastoral Care Encounter/Spiritual Assessment Type of Contact [] Declined mechanical drawing teacher visit [] Patient/Family/Request visit [] Outpatient visit [] Follow-up visit [] Physician referral [] Code/Alert [x] Routine visit [] Staff referral [] Actively dying [] Patient sleeping [] Family support [] [] Out of room [] Palliative care [] [] Receiving care in room [] Pre-surgical visit [] Trauma [] Long length of stay [] ICU visit [] Other: Relational/Emotional Strength [x] Patient feels connected with others/family/visitors/staff [] Distress [] Loneliness/isolation [] Abandonment Spirituality of Patient [x] Person of Araseli [] Attends Gnosticism of their Araseli [xx] Believes in Prayer [] Reads Bible or Mu-Ism materials [] There are Spiritual issues to be addressed Dry Mixer Interventions [x] Prayer [] Active listening [] Non-anxious presence [x] Spiritual/emotional support [] Crisis/trauma care [] Spiritual counseling [] Bereavement support [] Provided bereavement packet [] Provided Bible/devotional materials [] Provided toy/stuffed animal, coloring book to patient or family member [] Provided Communion [] Anointing/[place] [] Salvation [x] Completed spiritual assessment [] Other: Impact on Illness or Injury [] Angry [] Fearful [] Anxious [] Often cries [] Exhaustion [] Unable to work [] Unable to attend hinduism [] Unable to walk/stand [] Unable to read [] Unable to drive [] Unable to eat/drink [] Unable to sleep [] Unable to be with family [] Patient intubated [] Other: Summary Time spent with patient 5 min
[2023-06-09] MEDS: acetaminophen 500 mg Tablet 1000 MG PO (13:23)
--- NOTE | 2023-06-09 13:34 | PM.DCS ---
Discharge Providers Date of Admission: 06/08/23 12:54 Date of Discharge: June 09, 2023 Attending Provider at Admission: Yanet Lomeli MD Attending Provider at Discharge: Yanet Lomeli MD Primary Care Provider: Molly Fry DO Diagnoses at Discharge Discharge Diagnosis (1) Status post total left knee replacement not using cement: Status: Acute Permanent problem details: Date of procedure: June 08, 2023 Diagnosis: Degenerative osteoarthritis left knee with 20 degree flexion contracture and 28 degree varus deformity with retained anterior cruciate ligament reconstruction hardware Procedure done: Left total knee arthroplasty with Willy guidance and removal of ACL screw from tibia Implants: The [employer] total knee system with a size 5 triathlon beaded cruciate retaining femur left, a triathlon titanium tibial component size 4 beaded, a triathlon X3 tibial bearing CS insert size 4 X 11 mm and a beaded triathlon titanium asymmetric patella size 35 x 10 mm (2) Osteoarthritis of left knee: Status: Chronic Qualifiers: Osteoarthritis type: primary Qualified Code(s): M17.12 - Unilateral primary osteoarthritis, left knee (3) Retained orthopedic hardware: Status: Acute (4) Varus deformity, not elsewhere classified, left knee: Status: Acute (5) Flexion contracture of left knee: Status: Acute Reason for Visit Reason for Visit: M17.12 Physical Exam Const: COMMON NORMALS: no acute distress, average body habitus, patient oriented x3, no limitations, healthy appearing, alert and well nourished GENERAL APPEARANCE: cooperative; not anxious and not combative ORIENTATION/CONSCIOUSNESS: Yes awake, Yes oriented to person, Yes oriented to place and Yes oriented to time HENMT: COMMON NORMALS: normocephalic and atraumatic HEAD & SCALP: normocephalic and atraumatic Eye: GENERAL EYE: appearance normal, both eyes and all related structures EYELID: eyelids normal Chest: COMMONS NORMALS: normal inspection of the chest Resp: COMMON NORMALS: normal respiratory effort EFFORT & INSPECTION: Yes able to speak in complete sentences and Yes symmetric chest movement Extremity: LEFT LOWER EXTREMITY: Yes knee joint (Dressing is removed.) Left knee: Yes ROM (Able to straight leg raise.) and Yes neurovascular exam (No evidence of DVT.) Neuro: COMMON NORMALS: patient oriented x3 SENSORIUM/ORIENTATION: Yes alert, Yes oriented to person, Yes oriented to place and Yes oriented to time SPEECH: speech normal GAIT: Yes Normal gait present Psych: ATTITUDE: Yes calm and Yes engaged ACTIVITY/MOTOR BEHAVIOR: Yes appropriate eye contact ATTENTION/CONCENTRATION: Yes attention grossly intact MEMORY/COGNITION: Yes memory grossly intact Skin: COMMON NORMALS: no rashes or lesions noted and turgor normal; negative for no jaundice GENERAL SKIN EXAM: no rashes or lesions noted, turgor normal and no jaundice Urinary Catheter Management: Bradshaw: Cath Placed During This Visit: yes, but has since been removed by the nurse Reason for Continuing Indwelling Catheter: Decision to DC Catheter Date Urinary Catheter Removed: 06/09/23 Time Urinary Catheter Discontinued: 05:58 Discharge Data Studies Completed and Pending Completed Studies During Hospitalization Category Date Time Status XR knee LT 1-2V [id number] Routine Exams 06/08/23 13:29 Completed Pending at discharge Category Date Time Status Anaerobic Culture Routine Lab 06/08/23 09:48 Results Complete Blood Count w/Auto AM LABS Lab 06/10/23 04:00 Ordered Complete Blood Count w/Auto AM LABS Lab 06/11/23 04:00 Ordered Wound Culture and Gram Stain Routine Lab 06/08/23 09:48 Results Laboratory Results WBC 15.07 10^3/uL (3.29-11.43) H 06/09/23 03:10 RBC 3.92 10^6/uL (3.85-5.65) 06/09/23 03:10 Hgb 12.30 g/dL (11.27-16.99) 06/09/23 03:10 Hct 36.0 % (37-53) L 06/09/23 03:10 MCV 91.8 fl (82-101) 06/09/23 03:10 MCH 31.4 pg (27-33) 06/09/23 03:10 MCHC 34.2 g/dL (30-55) 06/09/23 03:10 RDW 12.6 % (12.1-15.1) 06/09/23 03:10 Plt Count 145 10^3/cmm (157-399) L 06/09/23 03:10 MPV 9.8 fL (7.4-10.4) 06/09/23 03:10 Neut % (Auto) 82.2 % 06/09/23 03:10 Lymph % (Auto) 5.8 % 06/09/23 03:10 Sibley % (Auto) 11.5 % 06/09/23 03:10 Eos % (Auto) 0.0 % 06/09/23 03:10 Baso % (Auto) 0.1 % 06/09/23 03:10 Neut # (Auto) 12.38 10^3/uL (1.8-7.7) H 06/09/23 03:10 Lymph # (Auto) 0.9 10^3/uL (0.8-4.8) 06/09/23 03:10 Sibley # (Auto) 1.7 10^3/uL (0.2-0.9) H 06/09/23 03:10 Eos # (Auto) 0.0 10^3/uL (0.0-0.8) 06/09/23 03:10 Baso # (Auto) 0.0 10^3/uL (0.0-0.1) 06/09/23 03:10 Nucleated RBC % (auto) 0 % 06/09/23 03:10 Nucleated RBCs # 0.0 /100WBC 06/09/23 03:10 Sodium 135 mmol/L (136-145) L 06/09/23 03:10 Potassium 4.2 mmol/L (3.5-5.1) 06/09/23 03:10 Chloride 101 mmol/L (98-107) 06/09/23 03:10 Carbon Dioxide 23 mmol/L (22-29) 06/09/23 03:10 Anion Gap 15.2 (5-19) 06/09/23 03:10 BUN 12 mg/dL (8-23) 06/09/23 03:10 Creatinine 0.7 mg/dL (0.7-1.2) 06/09/23 03:10 GFR Calculation 114.3 mL/min (90-130) 06/09/23 03:10 Glucose 122 mg/dL (65-115) H 06/09/23 03:10 Calculated Osmolality 281 mOsm/kg (285-295) L 06/09/23 03:10 Calcium 8.5 mg/dL (8.5-10.5) 06/09/23 03:10 Vitals Last Vital Signs Temp 98.8 F 06/09/23 11:43 Pulse 92 06/09/23 11:43 Resp 18 06/09/23 12:36 BP 129/75 06/09/23 11:43 Pulse Ox 97 06/09/23 11:43 O2 Del Method Room Air 06/09/23 11:43 O2 Flow Rate 2 06/08/23 14:07 Discharge Plan Discharge Patient Disposition: Home Health Service Condition: Stable Prescriptions: New oxycodone 5 mg Tablet 5 - 10 mg PO Q4H PRN (Reason: Moderate Pain) 7 Days Qty: 40 0RF aspirin 325 mg Tablet,Delayed Release (Dr/Ec) 325 mg PO DAILY Qty: 0 0RF acetaminophen 500 mg Tablet 1,000 mg PO Q8H Qty: 0 0RF Continued celecoxib 200 mg capsule 200 mg PO DAILY Rx Instructions: TAKE 1 CAPSULE BY MOUTH EVERY DAY Discharge Orders: Discharge Order (Routine); Ordered 06/09/23 Ordered By: Yanet Lomeli Other Ambulatory Orders: DME: Walker (Order) Location: None Selected Ordered By: Yanet Lomeli Referrals: Yanet Lomeli MD [Physician] - 06/21/23 10:15 am Discharge Diet: Advance as tolerated and Usual diet Discharge Activity: Increase activity as tolerated, Limit activity as instructed, Use walker/crutches as instructed and As per PT/OT instructions Patient Instructions: Opioid Safety Activity Restrictions/Additional Instructions: Weightbearing as tolerated. Range of motion, gait training, and strengthening per physical therapy. Please maintain dressing until it comes off on its own or you are seen in the clinic. Discharge Attestations Time Spent in Discharge Care*: greater than 30 min Specific Discharge Activities: educating patient, documenting/other paperwork and evaluating patient/reviewing data Quality Metrics Clinical Quality Measures [ No reported AMI, CVA or VTE this stay] Coding Level of Care Code Acute Code for Chg Fwd Diagnoses Status post total left knee replacement not using cement Z96.652 Primary osteoarthritis of left knee M17.12 Osteoarthritis type: primary Retained orthopedic hardware Z96.9 Varus deformity, not elsewhere classified, left knee M21.162 Flexion contracture of left knee M24.562
== END 2023-06-09 14:37 | disposition home health service (06) ==
LOC: MEDSURG 12:55
PROVIDERS: Nurse Practitioner; Admitting Provider Specialist; PCP Family Medicine; Visit Provider Specialist
PROC: 8E0Y0CZ Robotic Assisted Procedure of Lower Extremity, Open Approach (ICD-10-PCS; CPT 27447; principal; 2023-06-08 08:00)
DX: M17.12 Unilateral primary osteoarthritis, left knee (principal); M24.562 Contracture, left knee; T84.89XA Other specified complication of internal orthopedic prosthetic devices, implants and grafts, initial encounter; Y82.8 Other medical devices associated with adverse incidents; M21.162 Varus deformity, not elsewhere classified, left knee; Z86.19 Personal history of other infectious and parasitic diseases
CPT/HCPCS: 20985; 27447; 36415; 73560; 80048; 85025; 87070; 87075; 87205; 97110; 97116; 97161; 97165; 97530; C1713; C1776; C9290; G0378; J0131; J0690; J1100; J1170; J2250; J2405; J2704; J2795; J3010; J3370; J3490; J7030; P9045

== ENCOUNTER → 2023-06-21 10:20 | Outpatient (BNVA) | payer MEDICARE, SELFPAY | PROVIDERS: PCP Family Medicine; Visit Provider Nurse Practitioner | DX: Z96.652 Presence of left artificial knee joint (principal) | CPT/HCPCS: 73560; 73565; 99024 ==

== ENCOUNTER → 2023-07-19 08:02 | Outpatient (BNVA) | payer MEDICARE, SELFPAY | PROVIDERS: PCP Family Medicine; Visit Provider Specialist | DX: Z96.652 Presence of left artificial knee joint (principal); M17.12 Unilateral primary osteoarthritis, left knee | CPT/HCPCS: 73560; 73565; 99024 ==

== ENCOUNTER 2023-08-23 09:15 | Outpatient (CLI) | payer MEDICARE, SELFPAY ==
--- NOTE | 2023-08-23 09:20 | CT_ITS ---
WS: [id number] CT RIGHT KNEE, NONCONTRAST TECHNIQUE: Noncontrast CT of the RIGHT knee to include the RIGHT hip and ankle. CLINICAL INFORMATION: osteoarthritis of the right knee DLP: 973.[address] scans at [facility] use at least one of these dose optimization techniques: automated e xposure control; mA and/or kV adjustment per patient size (includes targeted exams where dose is matc hed to clinical indication); or iterative reconstruction. FINDINGS: Advanced tricompartment arthritis RIGHT knee. Hypertrophic patella. Vascular calcification. Bone-on-b one articulation medial joint compartment. Hypertrophic changes along the joint line. Osteopenia. Scr ew fixation of the lateral femoral condyle. Advanced subchondral cystic changes worse in the medial f emoral condyle. Chondrocalcinosis. Small suprapatellar effusion. CT/CT knee RT [facility] [id number] IMPRESSION: Images obtained for preoperative purposes.
[2023-08-23 09:50] LABS: Add Urine Microscopic? NO; Charge for UA Resulting for Rev
[2023-08-23 09:56] LABS: Basophils % 1.1 %; Eosinophils # 0.1 10^3/uL (0.0-0.8); Eosinophils % 4.6 %; Hematocrit 40.1 % (37-53); Lymphocytes % 36.4 %; Mean Corpuscular HGB Conc 32.9 g/dL (30-55); Mean Corpuscular Hemoglobin 28.9 pg (27-33); Mean Corpuscular Volume 87.7 fl (82-101); Mean Platelet Volume 10.8 fL (7.4-10.4); Monocytes # 0.6 10^3/uL (0.2-0.9); Monocytes % 19.8 %; Neutrophils # 1.08 10^3/uL (1.8-7.7); Neutrophils % 38.1 %; Nucleated Red Blood Cells % 0 %; Platelet Count 121 10^3/cmm (157-399); Red Blood Count 4.57 10^6/uL (3.85-5.65); Red Cell Distribution Width 12.8 % (12.1-15.1); White Blood Count 2.83 10^3/uL (3.29-11.43)
[2023-08-23 10:10] LABS: Bilirubin Urine Neg (Negative); Blood Urine Neg (Negative); Glucose Urine UA Norm (Normal); Ketones Urine Negative (Negative); Leukocyte Esterase Urine Negative (Negative); Nitrate Urine Negative (Negative); Protein Urine Neg (Negative); Specific Gravity, Urine 1.025 (1.005-1.030); Urine Appearance Clear (CLEAR); Urine Color Dark Yellow (Yellow); Urobilinogen Urine 1 mg/dL (Negative); pH Urine 6 (5-7)
[2023-08-23 10:11] LABS: Alanine Aminotransferase 33 U/L (0-41); Albumin Level 4.1 g/dL (3.5-5.2); Alkaline Phosphatase 95 U/L (40-130); Aspartate Amino Transferase 39 U/L (0-40); Blood Urea Nitrogen 7 mg/dL (8-23); Calcium 9.5 mg/dL (8.5-10.5); Carbon Dioxide 27 mmol/L (22-29); Chloride 103 mmol/L (98-107); Globulin 3.5 g/dL (1.3-4.6); Glucose 81 mg/dL (65-115); Osmolality Calculated 285 mOsm/kg (285-295); Sodium 139 mmol/L (136-145); Total Bilirubin 0.5 mg/dL (0.15-1.2); Total Protein 7.6 g/dL (6.6-8.7)
== END 2023-08-23 09:16 | disposition home or self-care (01) ==
LOC: RAD 09:16
PROVIDERS: PCP Family Medicine; Visit Provider Specialist
DX: M17.11 Unilateral primary osteoarthritis, right knee (principal); M79.4 Hypertrophy of (infrapatellar) fat pad; I70.292 Other atherosclerosis of native arteries of extremities, left leg; M25.861 Other specified joint disorders, right knee; M85.89 Other specified disorders of bone density and structure, multiple sites; Z87.81 Personal history of (healed) traumatic fracture; M85.60 Other cyst of bone, unspecified site; M85.661 Other cyst of bone, right lower leg; M11.261 Other chondrocalcinosis, right knee; Z96.652 Presence of left artificial knee joint
CPT/HCPCS: 36415; 73560; 73565; 73700; 80053; 81003; 85025; 99214

== ENCOUNTER 2023-09-19 17:19 | Observation (INO) | payer MEDICARE, SELFPAY ==
[2023-09-19] VITALS (17 sets, daily range): BP systolic 101–133; BP diastolic 59–84; PULSE 60–80; RESP 14–20; TEMP 35.8–37.1; O2SAT 93–100; BMI 25.5
[2023-09-19] MEDS: CELEcoxib 200 mg Capsule 400 MG PO (11:08)
[2023-09-19] MEDS: gabapentin 300 mg Capsule PO (11:08)
[2023-09-19] MEDS: sodium chloride 0.9% 1,000 ML 30 ML IV (11:15)
[2023-09-19] MEDS: acetaminophen 1,000 MG/100 ML PIGGYBACK 400 MG IV ×2 (11:18→18:24)
--- NOTE | 2023-09-19 11:29 | PM.OP ---
Operative Report Date of procedure: September 19, 2023 Pre-op diagnosis: Degenerative osteoarthritis right knee with flexion contracture and significant varus deformity. Retained orthopedic hardware laterally. Post-op diagnosis: Degenerative osteoarthritis right knee with flexion contracture and significant varus deformity. Retained orthopedic hardware laterally. Post-op findings: Severe degenerative osteoarthritic change with large osteophytes and significant cystic changes within the femur and tibia. There is a large medial femoral condyle cyst involving nearly the entire medial femoral condyle. Additionally, there were cysts in the lateral tibial plateau and posterior medial tibial Procedure done: Cemented right total knee with Willy guidance Implants: The Overwatch total knee system with a size 5 triathlon beaded cruciate retaining femur right, cemented, a triathlon universal total knee tibial baseplate size 5, cemented, a triathlon X3 tibial bearing CS insert size 5 X 16 mm and a cemented triathlon X3 asymmetric patella size 38 x 11 mm Specimens removed/disposition: Bone, disposed of Surgeon: Yanet Lomeli MD Rides Supervisor: [facility] operating room technicians Anesthesia: Spinal (Spinal with MAC, ASA 2) Estimated blood loss (mL): 550 Tourniquet time (min): 0 (Not utilized) IV fluids (mL): 2,000 Urine output (mL): 600 Complications: None Findings: Severe degenerative arthritis as noted above with large cystic changes as described above Condition: stable Disposition: PACU (Then to floor for postoperative rehabilitation and pain management) Brief History: This 63-year-old gentleman presents today for right total knee arthroplasty. The patient underwent left total knee arthroplasty in May of this year. He has done well following this. He has had multiple surgeries to this right knee. He has significant pain, deformity, and cystic changes within the knee as well as retained orthopedic hardware. He had significant interference with his activities of daily living and wished to proceed with right total knee arthroplasty. Risks and complications were discussed with him in the office, and consents were signed. Procedure: The patient was brought to the operating theater, and after undergoing spinal anesthesia with MAC, ASA 2, the right lower extremity was prepped with Dura-Prep and draped in usual fashion following placement of a tourniquet high on the leg. The leg was then draped free.? Tourniquet was not elevated during the case.? A surgical pause was performed, and at the time of the surgical pause, we confirmed the site and side of surgery. Additionally, we confirmed the appropriate and timely administration of preoperative antibiotics, Ancef 2 g.? The availability of equipment was confirmed, and the patient's identity was verbalized as well. Following the surgical pause, an incision was made centering over the patella continuing proximally and distally as necessary to allow access to the knee joint. Dissection continued through skin and soft tissues using a scalpel. Hemostasis was obtained using electrocautery. The skin incision was followed by a median parapatellar arthrotomy. The leg was extended and the patella was able to be displaced laterally.? Appropriate arrays and markers were placed in appropriate position for use of the Willy.? Prior to mapping of the extremity, the patient's anterior cruciate ligament retained tibial screw was removed uneventfully. Preoperative planning had been accomplished and was discussed in detail with the Willy patient care representative.? Intraoperative mapping of the femur and tibia was accomplished after the arrays and checkpoints were placed. Once we had accomplished the Willy mapping, we began the appropriate resections for placement of the prosthesis.? The plan was for a cruciate retaining right total knee arthroplasty. Balancing the knee was very difficult secondary to the significant deformity both flexion and varus with significant bone loss. Additional concerns were large cystic change which was visible on plain x-rays. Adjustments were made as appropriate. Once appropriate mapping had been accomplished retraction was established using manual retraction by surgical technicians and also the Willy leg positioner and retractors.? The knee was evaluated.? Appropriate bone resection was accomplished using the Willy.? The femur was sized to a size 5.? Following femoral cuts, attention was directed to the tibia.? Osteophytes were removed prior to this portion of the procedure.? We had performed a large medial release at the beginning of the procedure to allow for placement of the array and to assist in balancing the knee.? Proximal tibia was evaluated, and it was felt that appropriate size for the tibia was a size 5.? Tray was noted to fit nicely with good coverage, and we were able to avoid the deficient area on the medial tibial plateau.? Rim fit was accomplished with the size 5. There was a large cyst in the medial femoral condyle which was cleaned of soft tissue. Additional cystic change was noted anterior to the posterior cruciate ligament and the posteromedial portion of the tibia, and there was an additional cyst in the anterior lateral tibial plateau. These were debrided of soft tissue in preparation for cementing. Decision was made for cementing secondary to the severe loss of bone with cystic change. Retained orthopedic hardware did not require removal. A trial reduction was accomplished after osteophytes have been removed as well as the medial and lateral menisci.? We had removed the anterior cruciate ligament at the beginning of the case and preserved the posterior cruciate ligament.? Trial reduction was accomplished with a size 5 femoral cruciate retaining component, a size 5 tibial tray initially with an 11 mm insert which was subsequently increased to a 16 mm insert. This did require slight increase in the medial release to balance the knee and also posterior release to allow for full extension. Alignment was felt to be appropriate as well.? Trial components were removed after the femur had been drilled.? Prior to removal of the tibial tray which had been pinned in position with appropriate rotation as determined by the Willy plan, we broached the tibia.? The tibia was then reamed and broached in preparation for cementing. Preparation was made for cementing the femur as well. All trial components were removed, and the wound was irrigated.? Plans were made for insertion of the prosthetic components.? Prior to this, the patella was manually prepared.? After resection of the articular surface of the patella with the [id number] system, it was measured and measured a 38 mm patella.? We resected approximately 11 mm of patella.? Patellar height was restored with the patellar component. Evaluation of the femur demonstrated there was a cyst in the medial femoral condyle which was quite large. Secondary to the large size of the medial femoral condyle cyst. It was felt that appropriate treatment would be with cement and therefore the decision was made to cement the components. Preparation of the bone was accomplished with irrigating and drying. The tibia was then cemented into position followed by the femur followed by the patella. The CS tibial insert was placed prior to placement of the femoral component. The patella was cemented and held with a patellar clamp while the cement was allowed to cure. Exparel was injected about the components deep and superficially.? The knee was then copiously irrigated with betadine and saline and suctioned dry. Attention was then directed to closure. Closure was accomplished with 0 Vicryl in the fascial tissues.? The suture line of 0 Vicryl was supplemented with strata fix, #1, with a running stitch from proximal to distal and a second running stitch from distal to proximal.? This was followed by Surgiflo and vancomycin powder.? Following this, a 2-0 STRATAFIX was used in the subcutaneous tissues, and the skin was closed with 3-0 Strata fix.? Care was taken to assure an excellent subcutaneous as well as skin closure.? A sterile dressing was then placed consisting of Dermabond Prineo, OpSite, ABD, sterile soft roll, and an Trey wrap including over the foot. The patient was returned the Recovery Room in a satisfactory condition. X-rays were obtained and reviewed there.? The patient will be discharged to the floor for postoperative rehabilitation and pain management. Related Problem List Diagnoses (1) Osteoarthritis of right knee: (2) Varus deformity, not elsewhere classified, right knee: (3) Flexion contracture of right knee:
--- NOTE | 2023-09-19 11:35 | W.PM.OPSUD ---
Surgery/Procedure H&P Update DATE OF PROCEDURE: September 19, 2023 DATE H&P PERFORMED: 08/23/23 H&P UPDATE INFORMATION: I have reviewed H&P completed within last 30 days, I have examined patient prior to procedure, No changes to prior documentation and H&P is in [facility] [place] [place] on date indicated PLANNED PROCEDURE: Operation Date: 09/19/23 12:00 Proposed Procedures p Willy Robot Total Knee Arthroplasty-Primary w/ Revision components(Right) - Yanet Lomeli MD Related Problem List Diagnoses (1) Osteoarthritis of right knee: Qualifiers: Osteoarthritis type: primary Qualified Code(s): M17.11 - Unilateral primary osteoarthritis, right knee (2) Varus deformity, not elsewhere classified, right knee: (3) Retained orthopedic hardware:
--- NOTE | 2023-09-19 11:48 | ANES.PREANE2 ---
Pre-Anesthetic Assessment Height/Weight: Height 1.7 m Weight 73.936 kg Temp Pulse Resp BP Pulse Ox O2 Del Method 97.6 F 76 16 133/84 95 Room Air 09/19/23 10:45 09/19/23 10:45 09/19/23 10:45 09/19/23 10:45 09/19/23 10:45 09/19/23 10:49 Operation Date: 09/19/23 12:00 Proposed Procedures p Willy Robot Total Knee Arthroplasty-Primary w/ Revision components(Right) - Yanet Lomeli MD Familial anesthetic complications: none Was Beta Argenis taken within 24 hours: N/A Was Clonidine taken within 24 hours: N/A Last intake: Intake Last Liquid Date 09/19/23 Last Liquid Time 07:00 Last Solid Date 09/18/23 Last Solid Time 22:00 Social No alcohol and No tobacco Exam alert, oriented x 3, clear to auscultation bilaterally and regular rate & rhythm Airway Submandibular: within normal limits Cervical ROM: within normal limits Mallampati: Class II Dentition: false (upper) Hepatic Hepatitis (C) Musc/skel Lower Back Pain and Osteoarthritis/DJD Anesthetic Plan ASA status: 2 Anesthesia: Regional (specify below) (SAB with right adductor blk) Medications/Allergies Home Medications Medication Instructions Recorded Confirmed Last Taken Type celecoxib 200 mg capsule 200 mg PO DAILY 06/07/23 09/19/23 1 Month Ago History ~08/19/23 Allergies Allergy/AdvReac Type Severity Reaction Status Date / Time No Known Allergies Allergy Verified 09/19/23 10:47 Current Medications Generic Name Dose Route Start Last Admin Trade Name Freq PRN Reason Stop Dose Admin Sodium Chloride 1,000 mls @ 30 mls/hr 09/19/23 10:45 09/19/23 11:15 Sodium Chloride 0.9% IV 09/20/23 10:44 30 mls/hr .Q24H GOLDY Administration PFSH Anesthesia Medical History Carpal tunnel syndrome of left wrist Carpal tunnel syndrome of right wrist Primary osteoarthritis of knees, bilateral History of hepatitis C Enrolled in chronic care management Surgical History History of carpal tunnel release Right wrist carpal tunnel release. Dr. Yanet Lomeli MD DOS: 03/07/2023 H/O knee surgery Family History Other Cancer Social History Smoking and tobacco/nicotine status: never used tobacco/nicotine Alcohol intake: current Alcohol intake frequency: few times a week Substance/Drug Use: former Data Anesthesia Cardiac Studies: No Data to Display
[2023-09-19] MEDS: ceFAZolin 2,000 MG in sodium chloride 0.9% (plus) 50 ML 100 MG IV ×2 (12:43→20:19)
--- NOTE | 2023-09-19 13:13 | ANES.PROC ---
Anesthesia Procedures Procedure/Date: 09/19/23 Nerve Block ^: Nerve Block 1: Main Anesthesia: spinal anesthesia block Time Out Performed: Yes Consent: requested by attending/covering physician, from patient, risks and benefits reviewed and patient agrees to proceed Nerve block location: adductor canal (right) Anesthesia monitors applied: pulse oximetry, EKG, BP cuff and oxygen Nerve block position: supine Anesthetic Used: ropivicaine 0.5% Amount of anesthesia used (mL): 20 Ultrasound used to: recognize landmarks Nerve Stimulator Used?: No Interscalene/Femoral BLK: 4 stimuplex 21 g needle used for position and inplane approach Injection: neg aspiration of heme Patient Tolerated Procedure: well Complications: none
[2023-09-19] MEDS: tranexamic acid 1,000 mg/10mL SDV 1000 MG IV (13:22)
[2023-09-19] MEDS: BUPivacaine liposome 13.3 mg/mL SDV 10 mL 266 MG INFILTRATI (13:39)
[2023-09-19] MEDS: BUPivacaine 0.5% INJ 30 mL 20 ML INJECTION (13:39)
[2023-09-19] MEDS: ceFAZolin 1,000 mg SDV 3000 MG IRRIGATION (13:40)
[2023-09-19] MEDS: vancomycin 1,000 MG SDV 1000 MG XX (13:41)
--- NOTE | 2023-09-19 17:01 | XRR_ITS ---
PROCEDURE INFORMATION: Exam: XR Right Knee Exam date and time: 09/19/2023 5:10 PM Age: 63 years old Clinical indication: Device placement; Joint replacement hardware; Prior surgery; Surgery date: Post-operative (0-2 days); Surgery type: Post op RT knee; Additional info: Status post right total knee arthroplasty TECHNIQUE: Imaging protocol: Radiologic exam of the right knee. Views: 1 or 2 views. COMPARISON: CT knee RT [facility] [id number] 08/23/2023 9:39 AM FINDINGS: Bones/joints: Intact well-aligned right total knee arthroplasty. No periprosthetic fracture. Soft tissues: Surgical changes in the soft tissues. XR/XR knee RT 1-2V 19435 IMPRESSION: Intact well-aligned total knee arthroplasty. No apparent complications.
--- NOTE | 2023-09-19 17:41 | ANE.PACU2 ---
Inpatient post-anesthesia follow up: Airway intact: Yes Vital signs: Temperature 97.2 F Pulse Rate 75 Respiratory Rate 20 Blood Pressure 122/79 Pulse Oximetry 96 Oxygen Delivery Me thod Room Air Oxygen Flow Rate 8 Fraction of Inspir ed Oxygen Hydration adequate: Yes Nausea and vomiting: No Pain level: 1 Mental status: Baseline
--- NOTE | 2023-09-19 17:46 | PC.NURSE ---
1746 - Dr Bhatt at pts side. Per Dr. Bhatt, do not hold patient for temperature reading to go to floor.
[2023-09-19] MEDS: mupirocin oint 22 gm 1 APPLIC NASAL (18:23)
[2023-09-19] MEDS: calcium carbonate 500 mg Chew Tablet 1000 MG PO (18:23)
[2023-09-19] MEDS: iron polysaccharide complex 150 mg Capsule PO (18:23)
[2023-09-19] MEDS: sennosides-docusate Tablet 2 TAB PO (18:23)
[2023-09-19] MEDS: oxyCODONE 5 mg IR Tab/Cap PO (20:17)
[2023-09-19] MEDS: chlorhexidine gluconate 0.12% Btl 473 mL 30 ML MUCOUS MEM (21:09)
[2023-09-19] MEDS: CELEcoxib 200 mg Capsule PO (23:13)
[2023-09-20] VITALS (8 sets, daily range): BP systolic 117–139; BP diastolic 70–86; PULSE 71–83; RESP 15–18; TEMP 36.6–36.8; O2SAT 93–97
[2023-09-20] MEDS: oxyCODONE 5 mg IR Tab/Cap PO ×4 (00:21→13:54)
[2023-09-20] MEDS: acetaminophen 1,000 MG/100 ML PIGGYBACK 400 MG IV ×2 (02:17→10:50)
[2023-09-20] MEDS: ceFAZolin 2,000 MG in sodium chloride 0.9% (plus) 50 ML 100 MG IV (05:13)
[2023-09-20 05:46] LABS: Basophils % 0.5 %; Eosinophils # 0.1 10^3/uL (0.0-0.8); Eosinophils % 1.3 %; Hematocrit 30.9 % (37-53); Lymphocytes # 0.9 10^3/uL (0.8-4.8); Lymphocytes % 14.6 %; Mean Corpuscular HGB Conc 32.7 g/dL (30-55); Mean Corpuscular Hemoglobin 28.4 pg (27-33); Mean Corpuscular Volume 86.8 fl (82-101); Mean Platelet Volume 10.5 fL (7.4-10.4); Monocytes % 15.7 %; Neutrophils # 4.18 10^3/uL (1.8-7.7); Neutrophils % 67.6 %; Nucleated Red Blood Cells % 0 %; Platelet Count 111 10^3/cmm (157-399); Red Blood Count 3.56 10^6/uL (3.85-5.65); Red Cell Distribution Width 14.1 % (12.1-15.1); White Blood Count 6.18 10^3/uL (3.29-11.43)
[2023-09-20 06:03] LABS: Anion Gap 13.3 (5-19); Blood Urea Nitrogen 9 mg/dL (8-23); Calcium 8.6 mg/dL (8.5-10.5); Carbon Dioxide 25 mmol/L (22-29); Chloride 102 mmol/L (98-107); Glomerular Filtration Rate 114.3 mL/min (90-130); Glucose 103 mg/dL (65-115); Osmolality Calculated 281 mOsm/kg (285-295); Potassium 4.3 mmol/L (3.5-5.1); Sodium 136 mmol/L (136-145)
[2023-09-20] MEDS: aspirin 325 mg EC Tablet PO (08:23)
[2023-09-20] MEDS: calcium carbonate 500 mg Chew Tablet 1000 MG PO (08:23)
[2023-09-20] MEDS: multivitamin therapeutic Tablet 1 TAB PO (08:23)
[2023-09-20] MEDS: sennosides-docusate Tablet 2 TAB PO (08:23)
[2023-09-20] MEDS: cholecalciferol (vitamin D3) 1,000 unit Tablet 1000 UNIT PO (08:23)
[2023-09-20] MEDS: chlorhexidine gluconate 0.12% Btl 473 mL 30 ML MUCOUS MEM (08:24)
[2023-09-20] MEDS: mupirocin oint 22 gm 1 APPLIC NASAL (08:24)
[2023-09-20] MEDS: iron polysaccharide complex 150 mg Capsule PO (08:24)
[2023-09-20] MEDS: CELEcoxib 200 mg Capsule PO (10:50)
--- NOTE | 2023-09-20 13:32 | P.DS_ITS ---
Discharge Providers Date of Admission: 09/19/23 17:19 Date of Discharge: September 20, 2023 Attending Provider at Admission: Yanet Lomeli MD Attending Provider at Discharge: Yanet Lomeli MD Primary Care Provider: Molly Fry DO Diagnoses at Discharge Discharge Diagnosis (1) Status post total right knee replacement using cement: Status: Acute Permanent problem details: Date of procedure: September 19, 2023 Diagnosis: Degenerative osteoarthritis right knee with flexion contracture and significant varus deformity. Retained orthopedic hardware laterally. Post-op findings: Severe degenerative osteoarthritic change with large osteophytes and significant cystic changes within the femur and tibia. There is a large medial femoral condyle cyst involving nearly the entire medial femoral condyle. Additionally, there were cysts in the lateral tibial plateau and posterior medial tibial Procedure done: Cemented right total knee with Willy guidance Implants: The [id number] total knee system with a size 5 triathlon beaded cruciate retaining femur right, cemented, a triathlon universal total knee tibial baseplate size 5, cemented, a triathlon X3 tibial bearing CS insert size 5 X 16 mm and a cemented triathlon X3 asymmetric patella size 38 x 11 mm (2) Osteoarthritis of right knee: Status: Chronic Qualifiers: Osteoarthritis type: primary Qualified Code(s): M17.11 - Unilateral primary osteoarthritis, right knee (3) Varus deformity, not elsewhere classified, right knee: Status: Acute (4) Flexion contracture of right knee: Status: Acute Reason for Visit Reason for Visit: M17.11 Brief History: This 63-year-old gentleman presents today for right total knee arthroplasty. The patient underwent left total knee arthroplasty in May of this year. He has done well following this. He has had multiple surgeries to this right knee. He has significant pain, deformity, and cystic changes within the knee as well as retained orthopedic hardware. He had significant interference with his activities of daily living and wished to proceed with right total knee arthroplasty. Risks and complications were discussed with him in the office, and consents were signed. Hospital Course Hospital Course Patient was admitted following same-day surgery for cemented right total knee arthroplasty with Willy guidance. He was seen on the first postoperative day. He was doing well. He felt confident and comfortable for discharge to home. Dressing was dry. There is no evidence of DVT. There is minimal to no swelling. Minimal to no ecchymosis. He was independent with physical therapy. After discussion with the patient, plans were made for his discharge to home. Physical Exam Const: COMMON NORMALS: no acute distress, average body habitus, patient oriented x3 and alert GENERAL APPEARANCE: cooperative and comfortable ORIENTATION/CONSCIOUSNESS: Yes awake HENMT: COMMON NORMALS: normocephalic and atraumatic HEAD & SCALP: normocephalic and atraumatic Eye: GENERAL EYE: appearance normal, both eyes and all related structures Chest: COMMONS NORMALS: normal inspection of the chest Resp: COMMON NORMALS: normal respiratory effort EFFORT & INSPECTION: Yes able to speak in complete sentences and Yes symmetric chest movement Extremity: RIGHT LOWER EXTREMITY: Yes knee joint (No significant ecchymosis.) Right knee: Yes palpation (Minimal tenderness.), Yes ROM (Able to straight leg raise.) and Yes neurovascular exam (Intact distally with no evidence of DVT.) Neuro: COMMON NORMALS: patient oriented x3 SENSORIUM/ORIENTATION: Yes alert Psych: COMMON NORMALS: mental status grossly normal APPEARANCE: Yes grossly normal ATTITUDE: Yes calm and Yes engaged ATTENTION/CONCENTRATION: Yes attention grossly intact Skin: COMMON NORMALS: no rashes or lesions noted GENERAL SKIN EXAM: no rashes or lesions noted Urinary Catheter Management: Bradshaw: Cath Placed During This Visit: yes, but has since been removed by the nurse Reason for Continuing Indwelling Catheter: Decision to DC Catheter Date Urinary Catheter Removed: 09/20/23 Time Urinary Catheter Discontinued: 05:27 Discharge Data Studies Completed and Pending Completed Studies During Hospitalization Category Date Time Status XR knee RT 1-2V [id number] Routine Exams 09/19/23 17:01 Completed Radiology Impressions Knee X-Ray 09/19/23 17:01 IMPRESSION: Intact well-aligned total knee arthroplasty. No apparent complications. Laboratory Results WBC 6.18 10^3/uL (3.29-11.43) 09/20/23 04:59 RBC 3.56 10^6/uL (3.85-5.65) L 09/20/23 04:59 Hgb 10.10 g/dL (11.27-16.99) L 09/20/23 04:59 Hct 30.9 % (37-53) L 09/20/23 04:59 MCV 86.8 fl (82-101) 09/20/23 04:59 MCH 28.4 pg (27-33) 09/20/23 04:59 MCHC 32.7 g/dL (30-55) 09/20/23 04:59 RDW 14.1 % (12.1-15.1) 09/20/23 04:59 Plt Count 111 10^3/cmm (157-399) L 09/20/23 04:59 MPV 10.5 fL (7.4-10.4) H 09/20/23 04:59 Neut % (Auto) 67.6 % 09/20/23 04:59 Lymph % (Auto) 14.6 % 09/20/23 04:59 [place] % (Auto) 15.7 % 09/20/23 04:59 Eos % (Auto) 1.3 % 09/20/23 04:59 Baso % (Auto) 0.5 % 09/20/23 04:59 Neut # (Auto) 4.18 10^3/uL (1.8-7.7) 09/20/23 04:59 Lymph # (Auto) 0.9 10^3/uL (0.8-4.8) 09/20/23 04:59 [place] # (Auto) 1.0 10^3/uL (0.2-0.9) H 09/20/23 04:59 Eos # (Auto) 0.1 10^3/uL (0.0-0.8) 09/20/23 04:59 Baso # (Auto) 0.0 10^3/uL (0.0-0.1) 09/20/23 04:59 Nucleated RBC % (auto) 0 % 09/20/23 04:59 Nucleated RBCs # 0.0 /100WBC 09/20/23 04:59 Sodium 136 mmol/L (136-145) 09/20/23 04:59 Potassium 4.3 mmol/L (3.5-5.1) 09/20/23 04:59 Chloride 102 mmol/L (98-107) 09/20/23 04:59 Carbon Dioxide 25 mmol/L (22-29) 09/20/23 04:59 Anion Gap 13.3 (5-19) 09/20/23 04:59 BUN 9 mg/dL (8-23) 09/20/23 04:59 Creatinine 0.7 mg/dL (0.7-1.2) 09/20/23 04:59 GFR Calculation 114.3 mL/min (90-130) 09/20/23 04:59 Glucose 103 mg/dL (65-115) 09/20/23 04:59 Calculated Osmolality 281 mOsm/kg (285-295) L 09/20/23 04:59 Calcium 8.6 mg/dL (8.5-10.5) 09/20/23 04:59 Vitals Last Vital Signs Temp 97.9 F 09/20/23 12:00 Pulse 81 09/20/23 12:00 Resp 16 09/20/23 12:00 BP 119/70 09/20/23 12:00 Pulse Ox 94 09/20/23 12:00 O2 Del Method Room Air 09/20/23 08:00 O2 Flow Rate 8 09/19/23 17:00 Discharge Plan Discharge Patient Disposition: Home Health Service Condition: Stable Prescriptions: New acetaminophen 500 mg Tablet 1,000 mg PO Q8H 15 Days Qty: 90 0RF aspirin 325 mg Tablet,Delayed Release (Dr/Ec) 325 mg PO DAILY 30 Days Qty: 0 0RF oxycodone 5 mg Tablet 5 - 10 mg PO Q4H PRN (Reason: Moderate To Severe Pain) 7 Days Qty: 40 0RF Continued celecoxib 200 mg capsule 200 mg PO DAILY 30 Days Qty: 30 0RF Rx Instructions: TAKE 1 CAPSULE BY MOUTH EVERY DAY Discharge Orders: Discharge Order (Routine); Ordered 09/20/23 Ordered By: Yanet Lomeli Referrals: Yanet Lomeli MD [Physician] - 10/11/23 1:45 pm Discharge Diet: Advance as tolerated and Usual diet Discharge Activity: Increase activity as tolerated, Limit activity as instructed, Use walker/crutches as instructed and As per PT/OT instructions Patient Instructions: Aspirin (By mouth), Oxycodone, Rapid Release (By mouth), Joint Replacement Surgery (GEN), Total Knee Replacement (GEN), Joint Replacement Stoplight, Opioid Safety Activity Restrictions/Additional Instructions: Ice and elevation to right knee. Physical therapy for gait training, strengthening, and range of motion. You may shower, but do not submerge your knee in water. Take your dressing off if it begins to leak, but leave the Dermabond in place. You may weight-bear as tolerated. Discharge Attestations Time Spent in Discharge Care*: greater than 30 min Specific Discharge Activities: educating patient, documenting/other paperwork and evaluating patient/reviewing data Quality Metrics Clinical Quality Measures [ No reported AMI, CVA or VTE this stay] Coding Level of Care Code Acute Code for Chg Fwd Diagnoses Status post total right knee replacement using cement Z96.651 Primary osteoarthritis of right knee M17.11 Osteoarthritis type: primary Varus deformity, not elsewhere classified, right knee M21.161 Flexion contracture of right knee M24.561
== END 2023-09-20 14:42 | disposition home health service (06) ==
LOC: MEDSURG 17:19
PROVIDERS: Admitting Provider Specialist; PCP Family Medicine; Visit Provider Specialist
PROC: 8E0Y0CZ Robotic Assisted Procedure of Lower Extremity, Open Approach (ICD-10-PCS; CPT 27447; principal; 2023-09-19 11:30)
DX: M17.11 Unilateral primary osteoarthritis, right knee (principal); M24.561 Contracture, right knee; M21.161 Varus deformity, not elsewhere classified, right knee; Z86.19 Personal history of other infectious and parasitic diseases; Z79.82 Long term (current) use of aspirin
CPT/HCPCS: 20985; 27447; 36415; 73560; 80048; 85025; 97110; 97116; 97161; 97165; C1776; C9290; G0378; J0131; J0690; J2250; J2371; J2704; J2795; J3010; J3370; J3490; J7030; P9045

== ENCOUNTER → 2023-10-11 14:04 | Outpatient (BNVA) | payer MEDICARE, SELFPAY | PROVIDERS: PCP Family Medicine; Visit Provider Nurse Practitioner | DX: Z96.651 Presence of right artificial knee joint (principal); M17.11 Unilateral primary osteoarthritis, right knee | CPT/HCPCS: 73560; 73565; 99024 ==

== ENCOUNTER → 2023-11-22 08:13 | Outpatient (BNVA) | payer MEDICARE, SELFPAY | PROVIDERS: PCP Family Medicine; Visit Provider Nurse Practitioner | DX: Z96.651 Presence of right artificial knee joint (principal); M17.11 Unilateral primary osteoarthritis, right knee | CPT/HCPCS: 73560; 73565; 99213 ==

== ENCOUNTER → 2024-09-16 07:50 | Outpatient (BNVA) | payer OTHER, SELFPAY | PROVIDERS: PCP Family Medicine; Visit Provider Nurse Practitioner | DX: Z96.651 Presence of right artificial knee joint (principal); Z96.652 Presence of left artificial knee joint | CPT/HCPCS: 73560; 73565; 99214 ==

== ENCOUNTER 2024-11-04 06:55 | Outpatient (CLI) | payer OTHER, SELFPAY ==
[2024-11-04 07:28] LABS: Hematocrit 41.4 % (37-53); Hemoglobin 14.20 g/dL (11.27-16.99); Mean Corpuscular HGB Conc 34.3 g/dL (30-55); Mean Corpuscular Hemoglobin 29.5 pg (27-33); Mean Corpuscular Volume 85.9 fl (82-101); Nucleated Red Blood Cells % 0 %; Platelet Count 129 10^3/cmm (157-399); Red Blood Count 4.82 10^6/uL (3.85-5.65); White Blood Count 2.85 10^3/uL (3.29-11.43)
[2024-11-04 07:55] LABS: Alanine Aminotransferase 52 U/L (0-41); Albumin Level 4.5 g/dL (3.5-5.2); Alkaline Phosphatase 97 U/L (40-130); Anion Gap 19.1 (5-19); Aspartate Amino Transferase 73 U/L (0-40); Blood Urea Nitrogen 8 mg/dL (8-23); Calcium 9.5 mg/dL (8.5-10.5); Carbon Dioxide 22 mmol/L (22-29); Chloride 99 mmol/L (98-107); Cholesterol 176 mg/dL (0-200); Globulin 3.9 g/dL (1.3-4.6); Glucose 86 mg/dL (65-115); HDL Cholesterol 72 mg/dL (60-100); Osmolality Calculated 280 mOsm/kg (285-295); Potassium 4.1 mmol/L (3.5-5.1); Sodium 136 mmol/L (136-145); Total Protein 8.4 g/dL (6.6-8.7); Triglycerides 64 mg/dL (0-150)
== END 2024-11-04 06:56 | disposition home or self-care (01) ==
LOC: LAB 06:57
PROVIDERS: PCP Family Medicine; Visit Provider Family Medicine
DX: Z13.6 Encounter for screening for cardiovascular disorders (principal); Z12.5 Encounter for screening for malignant neoplasm of prostate
CPT/HCPCS: 36415; 80053; 80061; 85025; G0103

== ENCOUNTER 2024-11-18 06:50 | Outpatient (CLI) | payer OTHER, SELFPAY ==
[2024-11-18 08:48] LABS: INR 0.97 (0.8-1.2); Prothrombin Time 13.50 SECONDS (12.1-14.9)
[2024-11-18 09:04] LABS: Hematocrit 38.7 % (37-53); Hemoglobin 13.50 g/dL (11.27-16.99); Mean Corpuscular HGB Conc 34.9 g/dL (30-55); Mean Corpuscular Hemoglobin 30.0 pg (27-33); Mean Corpuscular Volume 86.0 fl (82-101); Nucleated Red Blood Cells % 0 %; Platelet Count 129 10^3/cmm (157-399); Red Blood Count 4.50 10^6/uL (3.85-5.65); White Blood Count 2.67 10^3/uL (3.29-11.43)
[2024-11-18 09:21] LABS: Vitamin B12 392 pg/mL (232-1245)
[2024-11-18 09:41] LABS: Slide Review Slide Review Perform
[2024-11-18 09:44] LABS: LAB Peripheral Smear Sent for Review
[2024-11-19 17:43] LABS: HEP C RNA Viral Load Quant <1.18 NOT DETECTED Log IU/mL (NOT DETECTED); HEP C RNA Viral Load Quant <15 NOT DETECTED IU/mL (NOT DETECTED)
== END 2024-11-18 06:51 | disposition home or self-care (01) ==
PROVIDERS: PCP Family Medicine; Visit Provider Family Medicine
DX: D70.9 Neutropenia, unspecified (principal); I48.91 Unspecified atrial fibrillation; E53.8 Deficiency of other specified B group vitamins
CPT/HCPCS: 36415; 80503; 82525; 82607; 82746; 83615; 85025; 85610; 85651; 86140; 87389; 87522

== ENCOUNTER 2024-12-26 14:29 | Oncology outpatient (recurring) (ONCR) | payer OTHER, SELFPAY | END 2025-01-07 23:59 | disposition home or self-care (01) | PROVIDERS: PCP Family Medicine; Visit Provider Internal Medicine | DX: D70.9 Neutropenia, unspecified (principal); K74.60 Unspecified cirrhosis of liver; D69.6 Thrombocytopenia, unspecified | CPT/HCPCS: 99205 ==

== ENCOUNTER 2025-02-06 11:30 | Oncology outpatient (recurring) (ONCR) | payer OTHER, SELFPAY ==
--- NOTE | 2025-01-31 09:12 | US_ITS ---
WS: [id number] RIGHT UPPER QUADRANT ULTRASOUND HISTORY: liver and spleen COMPARISON: 02/28/2022 Liver: 16.8 cm in length. Liver is normal size. Coarse echotexture throughout the liver. Slight nodularity of the liver surface. No mass identified. No intrahepatic duct dilatation. Portal Vein: Normal hepatopetal flow with monophasic waveform. Gallbladder: Normally distended gallbladder with no stones or wall thickening. CBD: 0.2 cm Pancreas: Not visualized. Right kidney: 10.6 cm in length. Normal size and echogenicity. No hydronephrosis or mass. Aorta and IVC: Unremarkable abdominal aorta and IVC. No ascites. US/US liver [id number] IMPRESSION: 1. Negative limited gallbladder. No stones identified. 2. Coarse echotexture throughout the liver. Suspect chronic hepatocellular dis ease such as cirrhosis.
[2025-02-06 11:52] LABS: Hematocrit 41.0 % (37-53); Hemoglobin 14.30 g/dL (11.27-16.99); Mean Corpuscular HGB Conc 34.9 g/dL (30-55); Mean Corpuscular Hemoglobin 30.2 pg (27-33); Mean Corpuscular Volume 86.7 fl (82-101); Nucleated Red Blood Cells % 0 %; Platelet Count 146 10^3/cmm (157-399); Red Blood Count 4.73 10^6/uL (3.85-5.65); White Blood Count 2.95 10^3/uL (3.29-11.43)
== END 2025-02-07 23:59 | disposition home or self-care (01) ==
PROVIDERS: Internal Medicine; PCP Family Medicine; Visit Provider Nurse Practitioner
DX: Z53.9 Procedure and treatment not carried out, unspecified reason (principal); Z86.19 Personal history of other infectious and parasitic diseases
CPT/HCPCS: 36415; 76705; 85025

== ENCOUNTER → 2025-02-13 12:13 | Outpatient (BNVA) | payer OTHER, SELFPAY | PROVIDERS: PCP Family Medicine; Visit Provider Nurse Practitioner | DX: D70.9 Neutropenia, unspecified (principal) | CPT/HCPCS: 99213 ==

== ENCOUNTER 2025-03-27 09:20 | Oncology outpatient (recurring) (ONCR) | payer MEDICARE, SELFPAY ==
[2025-03-27 10:04] LABS: Hematocrit 43.8 % (37-53); Hemoglobin 15.00 g/dL (11.27-16.99); Mean Corpuscular HGB Conc 34.2 g/dL (30-55); Mean Corpuscular Hemoglobin 29.7 pg (27-33); Mean Corpuscular Volume 86.7 fl (82-101); Nucleated Red Blood Cells % 0 %; Platelet Count 119 10^3/cmm (157-399); Red Blood Count 5.05 10^6/uL (3.85-5.65); White Blood Count 3.79 10^3/uL (3.29-11.43)
[2025-03-27 10:26] LABS: Alanine Aminotransferase 32 U/L (0-41); Albumin Level 4.3 g/dL (3.5-5.2); Alkaline Phosphatase 79 U/L (40-130); Anion Gap 13.1 (5-19); Aspartate Amino Transferase 46 U/L (0-40); Blood Urea Nitrogen 9 mg/dL (8-23); Calcium 9.4 mg/dL (8.5-10.5); Carbon Dioxide 26 mmol/L (22-29); Chloride 103 mmol/L (98-107); Globulin 3.0 g/dL (1.3-4.6); Glucose 108 mg/dL (65-115); Osmolality Calculated 285 mOsm/kg (285-295); Potassium 4.1 mmol/L (3.5-5.1); Sodium 138 mmol/L (136-145); Total Protein 7.3 g/dL (6.6-8.7)
== END 2025-04-09 23:59 | disposition home or self-care (01) ==
PROVIDERS: PCP Family Medicine; Visit Provider Nurse Practitioner
DX: D70.9 Neutropenia, unspecified (principal)
CPT/HCPCS: 36415; 80053; 85025; 99213